=== PATIENT | male | born 1930 | race Caucasian/White ===

== ENCOUNTER 2016-11-10 07:49 | Outpatient (CLI) | payer MEDICARE | END 2016-11-10 07:50 | disposition home or self-care (01) | DX: M70.21 Olecranon bursitis, right elbow (principal) ==

== ENCOUNTER 2016-11-14 11:48 | Inpatient (IN) | payer MEDICARE ==
[2016-11-14] MEDS ORDERED: AMPICILLIN/SULBACTAM 3 GM in SODIUM CHLORIDE 0.9% MINIBAG 100 ML IV STA (12:56)
[2016-11-14] MEDS ORDERED: HYDROcod/ACETAM 5/325 MG TABLET PO PRN (15:10)
[2016-11-14] MEDS ORDERED: ACETAMINOPHEN 325 MG TABLET PO PRN (15:10)
[2016-11-14] MEDS ORDERED: SODIUM CHLORIDE FLUSH 0.9% 10 ML SYRINGE IVP PRN (15:10)
[2016-11-14] MEDS ORDERED: ONDANSETRON ODT 4 MG TABLET TL PRN (15:10)
[2016-11-14] MEDS ORDERED: PIPERACILLIN/TAZOBACTAM 3.375 GM in SODIUM CHLORIDE 0.9% MINIBAG 100 ML IV SCH (16:00)
[2016-11-14] MEDS: PANTOPRAZOLE 40 MG TABLET PO SCH (16:35)
[2016-11-14] MEDS ORDERED: WATER FOR INJECTION,STERILE 10 ML ONE (17:40)
[2016-11-14] MEDS ORDERED: AMPICILLIN/SULBACTAM 1.5 GM in SODIUM CHLORIDE 0.9% MINIBAG 100 ML IV SCH (18:00)
[2016-11-14] MEDS ORDERED: OLANZapine 10 MG VIAL IM ONE (18:00)
[2016-11-14] MEDS ORDERED: BUDESONIDE 0.5 MG/2 ML NEB INH SCH (19:00)
[2016-11-14] MEDS: LORazepam 0.5 MG TABLET PO PRN (19:01)
[2016-11-14] MEDS ORDERED: SODIUM CHLORIDE 0.9% 250 ML IV ONE (19:04)
[2016-11-14] MEDS: AMPICILLIN/SULBACTAM 3 GM in SODIUM CHLORIDE 0.9% MINIBAG 100 ML IV SCH (19:15)
[2016-11-14] MEDS: SODIUM CHLORIDE FLUSH 0.9% 10 ML SYRINGE IVP SCH (19:15)
[2016-11-14] MEDS: ATORVASTATIN 10 MG TABLET PO SCH (21:59)
[2016-11-14] MEDS: FORMOTEROL FUMARATE NEB 20 MCG/2 ML INH SCH (23:09)
[2016-11-15] MEDS: AMPICILLIN/SULBACTAM 3 GM in SODIUM CHLORIDE 0.9% MINIBAG 100 ML IV SCH ×4 (02:14→22:31)
[2016-11-15] MEDS: SODIUM CHLORIDE FLUSH 0.9% 10 ML SYRINGE IVP SCH ×3 (02:16→20:21)
[2016-11-15] MEDS: PANTOPRAZOLE 40 MG TABLET PO SCH (06:40)
[2016-11-15] MEDS ORDERED: SODIUM CHLORIDE 0.45% 1,000 ML IV SCH ×2 (08:00)
[2016-11-15] MEDS: FORMOTEROL FUMARATE NEB 20 MCG/2 ML INH SCH ×2 (08:00→20:41)
[2016-11-15] MEDS: MULTIVITAMIN TABLET PO SCH (09:14)
[2016-11-15] MEDS: CITALOPRAM 10 MG TABLET PO SCH (09:14)
[2016-11-15] MEDS: LORATADINE 10 MG TABLET PO SCH (09:14)
[2016-11-15] MEDS: OMEGA-3 ACID ETHYL ESTERS 1 GM CAPSULE PO SCH (09:15)
[2016-11-15] MEDS: POLYETHYLENE GLYCOL 3350 17 GM PACKET PO SCH (09:15)
[2016-11-15] MEDS ORDERED: DEXTROSE 5%-0.45% NACL 1,000 ML IV ONE (10:08)
[2016-11-15] MEDS ORDERED: LACTATED RINGERS 1,000 ML IV ONE ×3 (17:09→18:39)
[2016-11-15] MEDS ORDERED: DEXAMETHASONE 4 MG/ML VIAL IVP ONE (17:10)
[2016-11-15] MEDS ORDERED: LIDOCAINE-MPF 2% 5 ML VIAL IM ONE (17:10)
[2016-11-15] MEDS ORDERED: MIDAZOLAM 2 MG/2 ML VIAL IVP ONE (17:10)
[2016-11-15] MEDS ORDERED: fentaNYL 100 MCG/2 ML VIAL IVP ONE (17:10)
[2016-11-15] MEDS ORDERED: PROPOFOL 200 MG/20 ML VIAL IVP ONE (17:10)
[2016-11-15] MEDS ORDERED: GLYCOPYRROLATE 1 MG/5 ML VIAL IVP ONE (17:10)
[2016-11-15] MEDS ORDERED: ceFAZolin 1 GM VIAL IV ONE (17:10)
[2016-11-15] MEDS ORDERED: OLANZapine 10 MG VIAL IM PRN (18:14)
[2016-11-15] MEDS ORDERED: fentaNYL 100 MCG/2 ML VIAL ONE (18:15)
[2016-11-15] MEDS: LORazepam 0.5 MG TABLET PO PRN (20:18)
[2016-11-15] MEDS: ATORVASTATIN 10 MG TABLET PO SCH (20:18)
[2016-11-15] MEDS: DULERA INH PRN (20:30)
[2016-11-15] MEDS: BUDESONIDE 0.5 MG/2 ML NEB INH SCH (20:42)
[2016-11-15] MEDS ORDERED: DULERA INH PRN (20:59)
[2016-11-16] MEDS: AMPICILLIN/SULBACTAM 3 GM in SODIUM CHLORIDE 0.9% MINIBAG 100 ML IV SCH ×2 (04:35→09:14)
[2016-11-16] MEDS: SODIUM CHLORIDE FLUSH 0.9% 10 ML SYRINGE IVP SCH (06:05)
[2016-11-16] MEDS: PANTOPRAZOLE 40 MG TABLET PO SCH (06:06)
[2016-11-16] MEDS: DULERA INH PRN (07:40)
[2016-11-16] MEDS: FORMOTEROL FUMARATE NEB 20 MCG/2 ML INH SCH (07:40)
[2016-11-16] MEDS: BUDESONIDE 0.5 MG/2 ML NEB INH SCH (07:41)
[2016-11-16] MEDS ORDERED: DEXTROSE 5%-0.45% NACL 1,000 ML IV SCH (08:00)
[2016-11-16] MEDS: POLYETHYLENE GLYCOL 3350 17 GM PACKET PO SCH (09:14)
[2016-11-16] MEDS: OMEGA-3 ACID ETHYL ESTERS 1 GM CAPSULE PO SCH (09:14)
[2016-11-16] MEDS: CITALOPRAM 10 MG TABLET PO SCH (09:14)
[2016-11-16] MEDS: MULTIVITAMIN TABLET PO SCH (09:14)
[2016-11-16] MEDS: LORATADINE 10 MG TABLET PO SCH (09:14)
== END 2016-11-16 11:50 | disposition home or self-care (01) | DRG 502 ==
PROC: 0MT30ZZ Resection of Right Elbow Bursa and Ligament, Open Approach (ICD-10-PCS; principal; 2016-11-15 16:00)
DX: M71.121 Other infective bursitis, right elbow (principal); B95.61 Methicillin susceptible Staphylococcus aureus infection as the cause of diseases classified elsewhere; M25.721 Osteophyte, right elbow; E78.00 Pure hypercholesterolemia, unspecified; J45.909 Unspecified asthma, uncomplicated; G30.9 Alzheimer's disease, unspecified; F02.80 Dementia in other diseases classified elsewhere, unspecified severity, without behavioral disturbance, psychotic disturbance, mood disturbance, and anxiety; E78.5 Hyperlipidemia, unspecified; J43.9 Emphysema, unspecified; Z87.891 Personal history of nicotine dependence; Z66 Do not resuscitate; Z91.81 History of falling

== ENCOUNTER 2017-02-11 17:26 | Emergency (ER) | payer MEDICARE | END 2017-02-11 18:34 | disposition home or self-care (01) | DX: S01.112A Laceration without foreign body of left eyelid and periocular area, initial encounter (principal); S09.90XA Unspecified injury of head, initial encounter; S00.81XA Abrasion of other part of head, initial encounter; S00.01XA Abrasion of scalp, initial encounter; S00.83XA Contusion of other part of head, initial encounter; W01.0XXA Fall on same level from slipping, tripping and stumbling without subsequent striking against object, initial encounter; Y93.K1 Activity, walking an animal; Y92.410 Unspecified street and highway as the place of occurrence of the external cause; R03.0 Elevated blood-pressure reading, without diagnosis of hypertension; G30.9 Alzheimer's disease, unspecified; F02.80 Dementia in other diseases classified elsewhere, unspecified severity, without behavioral disturbance, psychotic disturbance, mood disturbance, and anxiety ==

== ENCOUNTER 2017-12-04 13:55 | Outpatient (CLI) | payer MEDICARE ==
--- NOTE | 2017-12-04 18:05 | XRAY Report ---
DATE OF SERVICE: 12/04/2017 LEFT HIP AND PELVIS: 12/04/2017 CLINICAL INDICATION: Left hip pain. FINDINGS: Frontal view of the hips and pelvis and frogleg lateral view of the left hip demonstrate moderate to severe osteoarthritis. There is no evidence of acute fracture or dislocation. Vascular calcifications are incidentally noted. IMPRESSION: MODERATE TO SEVERE OSTEOARTHRITIS. TD: 12/04/2017 18:04
== END 2017-12-04 13:56 | disposition home or self-care (01) ==
LOC: DI 13:55
PROVIDERS: ATTEND Internal Medicine
DX: M16.12 Unilateral primary osteoarthritis, left hip (principal)

== ENCOUNTER 2018-07-18 10:10 | Outpatient (CLI) | payer MEDICARE ==
[2018-07-18 14:10] LABS: ALBUMIN 3.8 g/dL (3.2-5.5); ALBUMIN/GLOBULIN RATIO 1.2 (1.0-2.2); ALKALINE PHOSPHATASE 80 IU/L (42-121); ALT ALANINE AMINOTRANSFERASE 25 IU/L (10-60); AST ASPARTATE AMINOTRANSFERASE 35 IU/L (10-42); BILIRUBIN,TOTAL 0.9 mg/dL (0.2-1.0); BUN - BLOOD UREA NITROGEN 17 mg/dL (6-20); CALCIUM 9.2 mg/dL (8.5-10.3); CARBON DIOXIDE - CO2 28 mmol/L (21-32); CHLORIDE 104 mmol/L (101-111); CHOL/HDL RATIO 3.3 (<5.0); CHOLESTEROL 179 mg/dL; CREATININE 1.3 mg/dL (0.6-1.2); GFR - MDRD 52 (>89); GLUCOSE 97 mg/dL (70-100); HDL CHOLESTEROL 55 mg/dL; LDL CHOLESTEROL,CALCULATED 106 mg/dL; LDL/HDL RATIO 1.9 (<3.6); SODIUM 139 mmol/L (135-145); TOTAL PROTEIN 7.1 g/dL (6.7-8.2); VLDL CHOLESTEROL 18 mg/dL
== END 2018-07-18 10:11 | disposition home or self-care (01) ==
LOC: LAB.R 10:10
PROVIDERS: ATTEND Internal Medicine
DX: E78.5 Hyperlipidemia, unspecified (principal)
CPT/HCPCS: 80053; 80061; 83721

== ENCOUNTER 2019-07-07 08:34 | Outpatient (CLI) | payer MEDICARE ==
[2019-07-07 08:48] LABS: BASOPHILS % (AUTO) 0.4 %; EOSINOPHILS # (AUTO) 0.4 10^3/uL (0.0-0.7); EOSINOPHILS % (AUTO) 5.3 %; HGB - HEMOGLOBIN 15.1 g/dL (14.0-18.0); LYMPHOCYTES # (AUTO) 2.9 10^3/uL (1.5-3.5); LYMPHOCYTES % (AUTO) 41.5 %; MEAN CORPUSCULAR HEMOGLOBIN 29.7 pg (27.0-31.0); MEAN CORPUSCULAR HGB CONC 32.3 g/dL (32.0-36.0); MEAN CORPUSCULAR VOLUME 91.9 fL (80.0-94.0); MEAN PLATELET VOLUME 8.9 fL (7.4-11.4); MONOCYTES # (AUTO) 0.5 10^3/uL (0.0-1.0); MONOCYTES % (AUTO) 7.4 %; NEUTROPHILS # (AUTO) 3.2 10^3/uL (1.5-6.6); NEUTROPHILS % (AUTO) 45.1 %; PLT - PLATELET COUNT 246 10^3/uL (130-450); RED BLOOD COUNT 5.08 10^6/uL (4.70-6.10); RED CELL DISTRIBUTION WIDTH 13.6 % (12.0-15.0)
[2019-07-07 09:03] LABS: ALBUMIN 3.7 g/dL (3.2-5.5); ALKALINE PHOSPHATASE 66 IU/L (42-121); ALT ALANINE AMINOTRANSFERASE 20 IU/L (10-60); AST ASPARTATE AMINOTRANSFERASE 30 IU/L (10-42); BILIRUBIN,TOTAL 0.6 mg/dL (0.2-1.0); BUN - BLOOD UREA NITROGEN 16 mg/dL (6-20); CALCIUM 9.4 mg/dL (8.5-10.3); CARBON DIOXIDE - CO2 29 mmol/L (21-32); CHLORIDE 103 mmol/L (101-111); CHOL/HDL RATIO 3.4 (<5.0); CHOLESTEROL 183 mg/dL; CREATININE 1.4 mg/dL (0.6-1.2); GFR - MDRD 48 (>89); GLUCOSE 96 mg/dL (70-100); HDL CHOLESTEROL 54 mg/dL; LDL CHOLESTEROL,CALCULATED 116 mg/dL; LDL/HDL RATIO 2.1 (<3.6); SODIUM 142 mmol/L (135-145); TOTAL PROTEIN 7.5 g/dL (6.7-8.2); VLDL CHOLESTEROL 13 mg/dL
== END 2019-07-07 08:35 | disposition home or self-care (01) ==
LOC: LAB 08:34
PROVIDERS: ATTEND Nurse Practitioner
DX: F03.90 Unspecified dementia, unspecified severity, without behavioral disturbance, psychotic disturbance, mood disturbance, and anxiety (principal); E78.5 Hyperlipidemia, unspecified; K92.1 Melena
CPT/HCPCS: 36415; 80053; 80061; 83721; 85025

== ENCOUNTER 2019-08-05 08:00 | Outpatient (CLI) | payer MEDICARE | END 2019-08-05 23:59 | disposition home or self-care (01) | LOC: LAB.R 08:00 | PROVIDERS: ATTEND Nurse Practitioner | DX: K92.1 Melena (principal) | CPT/HCPCS: 82274 ==

== ENCOUNTER 2020-09-27 17:39 | Emergency (ER) | payer MEDICARE ==
--- NOTE | 2020-09-27 18:35 | ED Physician Documentation ---
History of Present Illness - Stated complaint Stated Complaint: GLF - Chief complaint Chief Complaint: Trauma Ext - History obtained from History obtained from: Patient - History of Present Illness Timing: Today Pain level max: 5 Pain level now: 1 - Additonal information Additional information: Patient is an 89-year-old male with severe dementia. He is here with his . She states that he was on concrete steps today when he slipped and fell backwards and slid down 3-4 concrete steps. He complained of abdominal pain since the event. She does not think that he hit his head, but she is unsure. Patient was carrying a bag of dog food. No vomiting. No loss of consciousness. No numbness or tingling. Does have abrasions and skin tears to the right hand. Tetanus is up-to-date Review of Systems Unable to obtain: Dementia Constitutional: denies: Fever, Chills Respiratory: denies: Cough GI: denies: Vomiting, Diarrhea : denies: Dysuria Skin: denies: Rash Neurologic: denies: Seizure PD PAST MEDICAL HISTORY - Past Medical History Past Medical History: Yes Cardiovascular: High cholesterol Respiratory: Asthma Neuro: Dementia Endocrine/Autoimmune: None GI: None : None HEENT: Chronic hearing loss Psych: Other Musculoskeletal: None Derm: None - Past Surgical History Past Surgical History: No - Present Medications Home Medications: Ambulatory Orders Medication Instructions Recorded Confirmed Citalopram [CeleXA] 10 mg PO DAILY 11/14/16 02/11/17 Loratadine [Claritin] 10 mg PO DAILY 11/14/16 02/11/17 Mometasone/Formoterol [Dulera 200 1 puffs INH BID 11/14/16 02/11/17 Mcg-5 Mcg Inhaler] Multivitamin [Theragran] 1 tab PO DAILY 11/14/16 02/11/17 [place]-3/Dha/Epa/Fish Oil [Fish Oil 1,000 mg PO DAILY 11/14/16 02/11/17 1,000 mg Softgel] Simvastatin 40 mg PO QPM 11/14/16 02/11/17 Bacillus Coagulans [Probiotic] 1 each PO DAILY 30 Days capsule. 11/16/16 02/11/17 Pantoprazole [Protonix] 40 mg PO QDAC tablet 11/16/16 02/11/17 - Allergies Allergies/Adverse Reactions: Allergies Allergy/AdvReac Type Severity Reaction Status Date / Time bacitracin Allergy Unknown Verified 09/27/20 18:01 [From Neosporin ([id number])] bacitracin zinc * Allergy Unknown Verified 09/27/20 18:01 [From Neosporin ([id number])] neomycin sulfate * Allergy Unknown Verified 09/27/20 18:01 [From Neosporin ([id number])] polymyxin B Allergy Unknown Verified 09/27/20 18:01 [From Neosporin ([id number])] - Social History Does the pt smoke?: No Smoking Status: Never smoker Does the pt drink ETOH?: No Does the pt have substance abuse?: No - Immunizations Immunizations are current?: Yes - POLST Patient has POLST: No POLST Status: Limited Interventions PD ED PE NORMAL - Vitals Vital signs reviewed: Yes - General General: No acute distress, Well developed/nourished, Other (alert, oriented to person only) - HEENT HEENT: Atraumatic, PERRL, Moist mucous membranes, Pharynx benign - Neck Neck: Supple, no meningeal sign, No bony TTP - Cardiac Cardiac: RRR, Strong equal pulses - Respiratory Respiratory: No respiratory distress, Clear bilaterally - Abdomen Abdomen: Soft, Non tender, Non distended - Back Back: No spinal TTP (no step off or deformity) - Derm Derm: Warm and dry - Extremities Extremities: No deformity, No tenderness to palpate, Normal ROM s pain, No edema, Other (skin tear to dorsum of R hand and R 5th digit, pad of finger. NVI. ) - Neuro Neuro: No motor deficit, No sensory deficit, Other (alert, pleasantly confused) Results - Vitals Vitals: Vital Signs - 24 hr 09/27/20 09/27/20 09/27/20 17:54 18:26 19:30 Temperature 36.0 C L 37.1 C Heart Rate 62 65 69 Respiratory 14 18 16 Rate Blood Pressure 110/62 164/88 H 165/79 H O2 Saturation 98 98 99 09/27/20 20:35 Temperature 36.7 C Heart Rate 64 Respiratory 18 Rate Blood Pressure 146/71 H O2 Saturation 97 Oxygen O2 Source Room air - Labs Labs: Laboratory Tests 09/27/20 09/27/20 18:35 18:35 WBC 8.3 RBC 4.81 Hgb 14.8 Hct 43.1 MCV 89.6 MCH 30.8 MCHC 34.3 RDW 13.1 Plt Count 251 MPV 9.4 Neut # (Auto) 5.2 Lymph # (Auto) 2.1 [place] # (Auto) 0.7 Eos # (Auto) 0.2 Baso # (Auto) 0.1 Absolute Nucleated RBC 0.00 Nucleated RBC % 0.0 Sodium 136 Potassium 4.0 Chloride 103 Carbon Dioxide 23 Anion Gap 10.0 BUN 22 H Creatinine 1.4 H Estimated GFR (MDRD) 48 L Glucose 101 H Calcium 9.5 Total Bilirubin 1.1 H AST 37 ALT 23 Alkaline Phosphatase 77 Total Protein 7.4 Albumin 4.1 Globulin 3.3 Albumin/Globulin Ratio 1.2 Lipase 34 - Rads (name of study) head Ct Radiology: Prelim report reviewed, EMP read contemporaneously c-spine CT Radiology: Prelim report reviewed, EMP read contemporaneously chest CT Radiology: Prelim report reviewed, EMP read contemporaneously abd/pelvis CT Radiology: Prelim report reviewed, EMP read contemporaneously PD MEDICAL DECISION MAKING - ED course Complexity details: reviewed results, re-evaluated patient, considered differential, d/w patient, d/w family ED course: Wounds were cleansed and bandaged. No acute findings on CT scans. Likely old L1 compression fracture. He has no pain at the site. No tenderness on palpation or percussion. Ambulating well. Appears to be at his normal baseline. would like to take him home at this time. Patient and family counseled regarding signs and symptoms for which I believe and urgent re- evaluation would be necessary. Patient with good understanding of and agreement to plan and is comfortable going home at this time This document was made in part using voice recognition software. While efforts are made to proofread this document, sound alike and grammatical errors may occur. Departure - Departure Disposition: 01 Home, Self Care Clinical Impression: Skin tear Fall Qualifiers: Encounter type: initial encounter Qualified Code(s): W19.XXXA - Unspecified fall, initial encounter Condition: Good Instructions: ED Mechanical Fall, ED Avulsion Dermal Follow-Up: Nicolle Ardon ARNP, [facility] [Primary Care Provider] - Within 1 week Comments: Thankfully his CT scans do not show any acute abnormalities tonight. Keep the wound clean. Follow-up with his doctor later this week for a wound check. Change the dressings daily. Leave the Mepitel in place on the hand for 1 week.
[2020-09-27 18:51] LABS: BASOPHILS # (AUTO) 0.1 10^3/uL (0.0-0.1); BASOPHILS % (AUTO) 0.7 %; EOSINOPHILS # (AUTO) 0.2 10^3/uL (0.0-0.7); EOSINOPHILS % (AUTO) 2.3 %; HGB - HEMOGLOBIN 14.8 g/dL (14.0-18.0); LYMPHOCYTES # (AUTO) 2.1 10^3/uL (1.5-3.5); LYMPHOCYTES % (AUTO) 25.6 %; MEAN CORPUSCULAR HEMOGLOBIN 30.8 pg (27.0-31.0); MEAN CORPUSCULAR HGB CONC 34.3 g/dL (32.0-36.0); MEAN CORPUSCULAR VOLUME 89.6 fL (80.0-94.0); MEAN PLATELET VOLUME 9.4 fL (7.4-11.4); MONOCYTES # (AUTO) 0.7 10^3/uL (0.0-1.0); MONOCYTES % (AUTO) 8.6 %; NEUTROPHILS # (AUTO) 5.2 10^3/uL (1.5-6.6); NEUTROPHILS % (AUTO) 62.2 %; PLT - PLATELET COUNT 251 10^3/uL (130-450); RED BLOOD COUNT 4.81 10^6/uL (4.70-6.10); RED CELL DISTRIBUTION WIDTH 13.1 % (12.0-15.0); WHITE BLOOD COUNT 8.3 x10^3/uL (4.8-10.8)
[2020-09-27 19:00] LABS: ALBUMIN 4.1 g/dL (3.2-5.5); ALBUMIN/GLOBULIN RATIO 1.2 (1.0-2.2); BILIRUBIN,TOTAL 1.1 mg/dL (0.2-1.0); CALCIUM 9.5 mg/dL (8.5-10.3); CREATININE 1.4 mg/dL (0.6-1.2); TOTAL PROTEIN 7.4 g/dL (6.7-8.2)
[2020-09-27] MEDS ORDERED: IOVERSOL 320 100 ML VIAL IVP ONE ×2 (19:07→19:41)
--- NOTE | 2020-09-27 20:12 | CT Report ---
PROCEDURE: HEAD WO INDICATIONS: fall, dementia TECHNIQUE: Noncontrast 4.5 mm thick angled axial sections acquired from the foramen magnum to the vertex. For r adiation dose reduction, the following was used: automated exposure control, adjustment of mA and/or kV according to patient size. COMPARISON: None. FINDINGS: Image quality: Excellent. CSF spaces: Basal cisterns are patent. No extra-axial fluid collections. Ventricles are normal in size and shape. Brain: No midline shift. No intracranial masses or hemorrhage. Walsh-white matter interface is norm al. Diffuse, scattered nonspecific white matter signal changes, statistically represent chronic micro vascular ischemic disease although differential includes neurodegenerative, infectious/inflammatory, demyelinating etiologies among other possibilities. Skull and face: Calvarium and visualized facial bones are intact, without suspicious lesions. Sinuses: Visualized sinuses and mastoids are clear. IMPRESSION: No acute intracranial process. Reviewed by: Sabino Vega MD on 09/27/2020 8:10 PM PST Approved by: Sabino eVga MD on 09/27/2020 8:10 PM PST Station ID: [id number]
--- NOTE | 2020-09-27 20:15 | CT Report ---
PROCEDURE: CERVICAL SPINE WO INDICATIONS: fall, dementia TECHNIQUE: Noncontrast 3 mm thick sections acquired from the skull base to the T4 level. Sagittal and coronal r eformats were then constructed. For radiation dose reduction, the following was used: automated exp osure control, adjustment of mA and/or kV according to patient size. COMPARISON: None. FINDINGS: Image quality: Excellent. Bones: No fractures or dislocations. Scattered multilevel endplate spurring and diffuse facet arthro suyapa. Straightening of the normal lordotic curvature. Severe diffuse narrowing of the cervical disc spaces . Visualized superior ribs are intact. Soft tissues: Prevertebral soft tissues are normal in thickness. No paravertebral hematomas. No ap ical pneumothoraces. Scattered carotid atherosclerotic calcified plaque. IMPRESSION: No fracture. Severe diffuse cervical spondylosis and facet arthropathy. Straightening of the normal lordotic curvature. Reviewed by: Sabino Haywood MD on 09/27/2020 8:14 PM PST Approved by: Sabino Haywood MD on 09/27/2020 8:14 PM PST Station ID: [id number]
--- NOTE | 2020-09-27 20:20 | CT Report ---
PROCEDURE: CHEST W INDICATIONS: fall, chest pain CONTRAST: IV CONTRAST: Optiray 320 ml: 100 PO CONTRAST: *NO PO CONTRAST TECHNIQUE: After the administration of intravenous contrast, 5 mm thick sections acquired from the pulmonary api clark to the posterior costophrenic angles. 7 mm thick coronal MIP reformats were acquired. For radia tion dose reduction, the following was used: automated exposure control, adjustment of mA and/or kV according to patient size. COMPARISON: None. FINDINGS: Image quality: Excellent. Lungs and pleura: Scattered subsegmental scarring/atelectasis. No acute consolidation. No pleural effusions or pneumothorax. Central and peripheral airways are patent and normal in caliber. Mediastinum: Heart size is normal. Coronary artery calcifications are noted. No pericardial effusi on. No mediastinal or hilar adenopathy by size criteria. Thoracic aorta and central pulmonary arter ies are normal in size. Esophagus is normal in caliber. No hiatal hernia. Bones and chest wall: There is mild central height loss of the L1 vertebral body however this findin g technically age indeterminate. Simple appearing left renal cyst. IMPRESSION: Scattered subsegmental scarring/atelectasis. No acute consolidation. Mild L1 vertebral body height loss, although this finding technically age indeterminate. Recommend cl inical correlation. No acute consolidation Coronary artery disease Reviewed by: Sabino Vega MD on 09/27/2020 8:19 PM PST Approved by: Sabino Vega MD on 09/27/2020 8:19 PM PST Station ID: [id number]
--- NOTE | 2020-09-27 20:35 | CT Report ---
PROCEDURE: Abdomen/Pelvis W INDICATIONS: fall, abd pain CONTRAST: IV CONTRAST: Optiray 320 ml: 100 PO CONTRAST: *NO PO CONTRAST TECHNIQUE: After the administration of intravenous contrast, 5 mm thick sections acquired from the diaphragms to the symphysis. 5 mm thick coronal and sagittal reformats were acquired. For radiation dose reducti on, the following was used: automated exposure control, adjustment of mA and/or kV according to chelle ent size. COMPARISON: None. FINDINGS: Image quality: Excellent. ABDOMEN: Lung bases: Lung bases are clear. Heart size is normal. Solid organs: Liver and spleen are normal in size and enhancement. Gallbladder unremarkable Biliar y system is non dilated. Pancreas enhances normally. No adrenal nodules. No hydronephrosis. Multipl e left renal cysts. Peritoneum and bowel: Bowel loops demonstrate normal wall thickness and caliber. No free fluid or air. Colonic diverticulosis incidentally noted without evidence of acute inflammat ion. Nodes and vessels: No retroperitoneal or mesenteric adenopathy by size criteria. Aorta and inferior vena cava are normal in size. Scattered vascular calcifications are present in the aorta. Miscellaneous: No ventral hernias. PELVIS: Genitourinary: Bladder wall thickness is normal. Small fat-containing left inguinal hernia. Bones: No suspicious bony lesions. Mild central height loss of the L1 vertebral body, technically a ge indeterminate. IMPRESSION: Mild central height loss involving the L1 vertebral body although this finding technically age indete rminate. Please correlate with point tenderness. Elsewhere, no acute abnormality. Colonic diverticulosis Left renal cyst. Additional chronic and incidental findings as above. Reviewed by: Sabino Vega MD on 09/27/2020 8:33 PM PST Approved by: Sabino Vega MD on 09/27/2020 8:33 PM PST Station ID: [id number]
[2020-09-27 20:36] VITALS: BP 146/71
== END 2020-09-27 20:55 | disposition home or self-care (01) ==
LOC: ED 17:39
DX: S61.216A Laceration without foreign body of right little finger without damage to nail, initial encounter (principal); W10.9XXA Fall (on) (from) unspecified stairs and steps, initial encounter; Y93.89 Activity, other specified; F03.90 Unspecified dementia, unspecified severity, without behavioral disturbance, psychotic disturbance, mood disturbance, and anxiety; I25.10 Atherosclerotic heart disease of native coronary artery without angina pectoris
CPT/HCPCS: 36415; 70450; 71260; 72125; 74177; 80053; 83690; 85025; 99282; 99284; Q9967

== ENCOUNTER 2020-10-12 12:40 | Outpatient (CLI) | payer MEDICARE ==
--- NOTE | 2020-10-12 16:20 | CONSULTATION NOTE ---
Palliative Care Consultation - Referral Referring Provider: CHARLOTTE Luong Time of Visit: 6791-0095 Referral setting: Home Referral Reason: Dementia/Debility/Advanced Care Planning - Information Sources Records reviewed: Previous records reviewed History/Review of Systems obtained from: Patient, Family (/RADU, Arline) Exam limitations: Clinical condition (Advanced Dementia) - History of Present Illness Brief History of Present Illness: This is an 89-year-old gentleman who was seen and evaluated today within his home for initial palliative care consultation due to advancing dementia, debility, and advanced care planning with his , Priscilla antonio. It has been a number of years since the patient began his cognitive decline. The patient's mother carried a diagnosis of Alzheimer's dementia and was otherwise physically healthy and he saw Dr. Cortez. It was difficult for him initially to accept this diagnosis and his intervened offering support and he remains within their home with her providing primary caregiving. The patient and 's daughter, Paulette who was a former DIVISION OFFICER [employer] also offers support and is the 's "rock." The patient's has a history of verbal outbursts if his boundaries are not known or respected. The patient's reports that she has never felt unsafe. They do have a gun within the home that is in a secure location. The patient did spend several months several years ago [facility] while the was recovering from her own medical problems and overall did well there. The patient's finds that she is unable to have the patient be despite encouragement from herself or from her daughter. He continues to have repetitive behaviors where he perceives in the late evening that he is having to return home from work and will want to go outside but always comes back in. This is not occurred for some time but was a persistent behavior in the past. There are times when he is not able to recognize his or children. The patient's reports that he had a recent fall and has some concerns regarding safety within the home environment as the patient is at high risk for falling. The patient is seen sitting at the kitchen table, frail and well groomed. Noticeable that he is hard of hearing and opts not to wear his hearing aids. He occasionally interjects when questioned. No evidence of acute distress. 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 Former alcohol abuse with making his own "special martini" stopped 2013 drinking.) Social History - Living Situation Living arrangement: At home Living Situation: With spouse/s.o., With family (daughter, Paulette and son) Support System: Patient is and has 4 children. His daughter, Nikki is a former CERTIFIED REGISTERED LOCKSMITH who lives with her parents to provide assistance as well as one of their son. Patient worked for the [employer]. He has a history of tobacco and alcohol abuse. They have 2 pets in the home a cat and a dog, Moccha. Family History - Family History Family History: Mother: , Alzheimer's Disease, Father: Medications/Allergies - Medications Home Medications: Ambulatory Orders Medication Instructions Recorded Confirmed Citalopram [CeleXA] 10 mg PO DAILY 11/14/16 10/12/20 Loratadine [Claritin] 10 mg PO DAILY 11/14/16 10/12/20 Multivitamin [Theragran] 1 tab PO DAILY 11/14/16 10/12/20 Simvastatin 40 mg PO QPM 11/14/16 10/12/20 Bacillus Coagulans [Probiotic] 1 each PO DAILY 30 Days capsule. 11/16/16 10/12/20 Cholecalciferol (Vitamin D3) 1 cap PO DAILY 10/12/20 10/12/20 [Vitamin D3] Fluticasone/Salmeterol [Advair 1 puffs IN BID 10/12/20 10/12/20 500-50 Diskus] LORazepam [Ativan] 1 tab PO DAILY PRN 10/12/20 10/12/20 - Allergies Allergies/Adverse Reactions: Allergies Allergy/AdvReac Type Severity Reaction Status Date / Time bacitracin Allergy Unknown Verified 10/12/20 16:25 [From Neosporin ([id number])] bacitracin zinc * Allergy Unknown Verified 10/12/20 16:25 [From Neosporin ([id number])] neomycin sulfate * Allergy Unknown Verified 10/12/20 16:25 [From Neosporin ([id number])] polymyxin B Allergy Unknown Verified 10/12/20 16:25 [From Neosporin ([id number])] Review of Systems - Constitutional Constitutional: reports: Fatigue. denies: Weight stable - Eyes Eyes: denies: Corrective lenses - Ears, Nose & Throat Ears, Nose & Throat: reports: Hearing loss. denies: Hearing aids, Dry mouth - Cardiovascular Cardiovascular: denies: Chest pain, Edema - Respiratory Respiratory: denies: Cough - Gastrointestinal Gastrointestinal: reports: Good appetite. denies: Constipation, Diarrhea - Genitourinary Genitourinary: reports: Incontinence. denies: Dysuria - Musculoskeletal Musculoskeletal: reports: Stiffness, Joint pain (hands and to knee due to OA), Other (history of falls) - Integumentary Integumentary: denies: Rash - Neurological Neurological: reports: General weakness, Memory problems. denies: Headache, Dizziness - Psychiatric Psychiatric: reports: Aggitation (history of agitation and with use of PRN lorazepam this caused the patient to "be wired" per the and it has not been needed for several months.) - Endocrine Endocrine: reports: Other (extremities always feel cold) - All Other Systems All Other Systems: reports: Reviewed and negative (Patient is a poor historian due to dementia and review of systems is supplemented by the patient's , Priscilla.) Physical Exam - Vital Signs Temperature: 36.4 C Pulse Rate: 81 O2 Saturation: 96 (on RA at rest) Blood Pressure: 107/65 (left wrist cuff sitting) - Physical Exam General Appearance: positive: No acute distress, Alert, Other (thin, well groomed) Eyes Bilateral: positive: Normal inspection, PERRL ENT: positive: No signs of dehydration Neck: positive: Trachea midline Cardiovascular: positive: Regular rate & rhythm, No murmur Respiratory: positive: No respiratory distress, Breath sounds nml. negative: Rales Abdomen: positive: Non-tender, Soft, Nml bowel sounds Skin: positive: Dryness, Other (scab to dorsal aspect of left hand without s/s of infection) Extremities: positive: No pedal edema. negative: Joint swelling Neurologic/Psychiatric: positive: Disoriented to place, Disoriented to time, Other (Pleseantly confused) Palliative Care - POLST Patient has POLST: Yes POLST Status: DNR Pain: Comment (due to OA) Tiredness/Fatigue: Mild (1-3) Drowsiness/Sedation: None Nausea: None Anorexia: None Dyspnea: None Depression: None Anxiety: Mild (1-3) Feelings of wellbeing/Perceived Quality of Life: Acceptable Sleep: Sleeps well Constipation: No Performance Status: Patient has a history of falls. He requires assistance with activities of daily living. He is unable to meal prep and requires cueing with dressing as he will often wear his 's clothes. Incontinent of bladder and remains continent of bowel. No weight loss reported. F AST 6D - Palliative Care Discussion: The patient has experienced a functional decline over several years and requires oversight by his who is his primary caregiver within the home. The does have some support from her daughter, Nikki was a formal DIVISION [employer] and where the is unable to succeed in convincing the patient regarding care the daughter often will be able to succeed. The patient's is concerned that he will not allow either her nor their daughter to assist with bathing. There are no a daptive devices within the home for fall prevention and he would benefit from a home safety evaluation as well as home health physical therapy and occupational therapy services for safety and balance and strengthening due to underlying osteoarthritis to multiple joints. The patient's has several health problems and would benefit from additional teasing out regarding goals of care moving forward in addition of advanced care planning. DAYA introduced today and reports that DN AR is present within the home but she does not have it readily available at this time. Open to exploring goals of care at next visit. Patient does have a history of verbal outbursts and agitation/anxiety due to his underlying dementia. HePatient does have a history of verbal outbursts and agitation/anxiety due to his underlying dementia. He Had undesirable response to lorazepam where he became more heightened and alert and would benefit from a trial of a low-dose antipsychotic such as quetiapine if needed in the future on an as-needed basis. Impression and Recommendations - Palliative Care Impression: This is a rip 89-year-old gentleman who has had a slow cognitive decline over several years due to advancing dementia at FAST 6D , Osteoarthritis with debility, high risk for fall, in advancing caregiver burden. Patient would benefit from home health services for PT and OT for balance and strengthening as well as home safety evaluation for fall prevention and is open to this. He has a history of agitation and verbal outbursts but none recently and the patient's reports that she feels safe within the home environment. Palliative care to continue to provide support for symptom management, care coordination, teasing out goals of care and advance care planning. Recommendations/Counseling Done: 1. Osteoarthritis, multiple joints. Patient at high risk for falls with emergency department visit end of August 2020 due to fall. He would benefit from home safety evaluation for fall prevention and physical therapy and Occupational Therapy for strengthening, gait training, and balance. 2.Hyperlipidemia. Presently on simvastatin 40 mg nightly. As this is primary prevention and patient does not have a history of hypertension or past history of CVA or NV May consider discontinuation of simvastatin therapy in the future given time to benefit and potential side effects. Plan to discuss in the future with the patient's . 3. History of agitation. Patient has a history of verbal outbursts due to his underlying depression. He had a paradoxical response to lorazepam when previously administered and presently his symptoms are overall controlled with citalopram 10 mg daily which should be continued. 4.Dementia with behavioral disturbances. Chronic. Progressive. Fall precautions. Given the patient's paradoxical response to lorazepam introduced to the patient's use of quetiapine, antipsychotic, in the future if needed for anxiety/agitation. Advised the patient's that quetiapine holds a black box warning with questions answered and addressed. Offered additional support by recommendation to look at the Alzheimer's Association.org website for 1 Resources and support and is open to this recommendation. 1 no disease modifying agents. Given the patient's advanced age and chronic comorbidities a gradual decline is expected. 5. Caregiver burden. The patient's /DPOA, is providing the primary caregiving. At the present time the patient's finds that she is able to be strong and move forward. However, she is frustrated that she is not able to get the patient to shower safely for many months. She is looking for additional assistance within the home. Introduced having a referral placed [facility] to contact the patient's caregiving [place] needs [place] to this. Referral has been placed. Suggestion regarding obtainment of a baby monitor for with the home for when the spouse is unable to be in the same room and the patient requires monitoring.Concern moving forward is in regards to having a plan in place to avoid a crisis situation. We will continue to tease out advance care planning with the patient's spouse. 6. Advanced care planning. Patient's reports POLST in the home as DN AR. POLST was not accessible during this visit and requested that patient's have available at next visit and if needed may complete a new POLST at follow- up. We will continue to tease out goals of care moving forward. Supportive listening provided. FACE to FACE: It would be a taxing and considerable effort for the patient to leave his home due to underlying osteoarthritis and is also homebound secondary to high risk of mortality if contracts COVID-19 and therefore remaining at home is medically necessary. Patient has a history of falls and due to his underlying osteoarthritis would benefit from physical therapy for strengthening program, training of caregiver/ and equipment recommendations. Occupational therapy for energy conservation and surveillance of the home with fall precaution recommendations. Time Spent: Total time spent 95 minutes with greater than 50% of this spent in counseling and coordination of care With patient and patient's /DPOA, palliative care philosophy, introduction of POLST, examination of the patient, supportive listening,, review of symptom management and anticipatory guidance. Disclaimer: The chart note was formulated using voice recognition technology and unfortunately sound alike errors may occur.
== END 2020-10-12 12:41 | disposition home or self-care (01) ==
LOC: PC 12:40
PROVIDERS: ATTEND Nurse Practitioner Family
DX: Z51.5 Encounter for palliative care (principal); M15.0 Primary generalized (osteo)arthritis; E78.5 Hyperlipidemia, unspecified; F32.9 Major depressive disorder, single episode, unspecified; F03.91 Unspecified dementia, unspecified severity, with behavioral disturbance; Z91.81 History of falling; Z87.891 Personal history of nicotine dependence; Z66 Do not resuscitate
CPT/HCPCS: 99345

== ENCOUNTER 2020-11-03 10:15 | Outpatient (CLI) | payer MEDICARE ==
--- NOTE | 2020-11-03 16:36 | CONSULTATION NOTE ---
Palliative Care Follow Up - Referral Referring Provider: CHARLOTTE Luong Time of Visit: 8318-3386 Referral setting: Home Referral Reason: Dementia/Advanced Care Planning - Information Sources Records reviewed: Previous records reviewed History/Review of Systems obtained from: Patient, Family (/RADU, Arline) Exam limitations: Clinical condition (Advanced Dementia, [place]) - History of Present Illness Update Brief HPI Update: This is a an 89-year-old gentleman who was seen in follow-up today due to [facility] dementia and advanced care planning with his , Priscilla presents within their home. The patient began his cognitive decline several years ago. He continues to be mobile and does have a history of falls none recent. His last fall was in early September when he was assisting carrying a bag of dog food. CT of the spine was obtained and demonstrated an old L1 compression fracture. The patient denies any back or generalized pain. Due to history of falls Home health PT and OT were ordered for evaluation and treatment. However, the reports that physical therapy was not quite the right fit and has declined moving forward with this service at this time. In regards to the patient's recent CT of the spine and noted L1 compression fracture that appeared to be old primary care who ordered a DEXA scan that the has elected not to schedule and proceed with after weighing benefits versus burdens. The patient's appetite remains good. There are times where he will refuse and offering and the patient patient's will let it ride and then return with a repeat offering that is typically excepted. The patient does have a history of verbal output first if his boundaries are not known or respected. Throughout that the risk of outburst or changes in behavioral disturbances. The patient will wake up intermittently in the middle of the night and then puts around in the common area straightening things and mumbling to himself. There has been no evidence of distress per the 's report. The patient is seen sitting at the kitchen table, frail and well groomed. He has a knitted hat on his head for warmth. No evidence of acute distress. denies any changes to medications. Past Medical History: Patient has a past medical history Of hyperlipidemia, osteoarthritis, emphysema, dementia, alcoholism, chronic hearing loss. Social History - Living Situation Living arrangement: At home Living Situation: With spouse/s.o., With family (daughter, Paulette and son) Support System: Patient is and has 4 children. His daughter, Nikki is a former BOARDING ROOM FIXER who lives with her parents to provide assistance as does one of their sons. The patient works for the [employer]. He has a history of tobacco and alcohol abuse. They have 2 pets in the home a cat, and a dog smoker. [facility] intake referral form was previously sent and the patient's was contacted. The patient's reports today that she feels stable with her present help but feels reassured to have [facility] available if this were to change in the future. Medications/Allergies - Medications Home Medications: Ambulatory Orders Medication Instructions Recorded Confirmed Citalopram [CeleXA] 10 mg PO DAILY 11/14/16 10/12/20 Loratadine [Claritin] 10 mg PO DAILY 11/14/16 10/12/20 Multivitamin [Theragran] 1 tab PO DAILY 11/14/16 10/12/20 Simvastatin 40 mg PO QPM 11/14/16 10/12/20 Bacillus Coagulans [Probiotic] 1 each PO DAILY 30 Days capsule. 11/16/16 10/12/20 Cholecalciferol (Vitamin D3) 1 cap PO DAILY 10/12/20 10/12/20 [Vitamin D3] Fluticasone/Salmeterol [Advair 1 puffs IN BID 10/12/20 10/12/20 500-50 Diskus] LORazepam [Ativan] 1 tab PO DAILY PRN 10/12/20 10/12/20 - Allergies Allergies/Adverse Reactions: Allergies Allergy/AdvReac Type Severity Reaction Status Date / Time bacitracin Allergy Unknown Verified 10/12/20 16:25 [From Neosporin ([id number])] bacitracin zinc * Allergy Unknown Verified 10/12/20 16:25 [From Neosporin ([id number])] neomycin sulfate * Allergy Unknown Verified 10/12/20 16:25 [From Neosporin ([id number])] polymyxin B Allergy Unknown Verified 10/12/20 16:25 [From Neosporin ([id number])] Review of Systems - Constitutional Constitutional: reports: Fatigue (naps frequently during the day). denies: Weight stable - Ears, Nose & Throat Ears, Nose & Throat: reports: Hearing loss. denies: Hearing aids (will not wear hearing aids), Dry mouth - Cardiovascular Cardiovascular: denies: Edema - Respiratory Respiratory: denies: Cough - Gastrointestinal Gastrointestinal: reports: Good appetite. denies: Constipation, Diarrhea - Genitourinary Genitourinary: reports: Incontinence. denies: Dysuria - Musculoskeletal Musculoskeletal: reports: Stiffness, Joint pain (history of pain due to OA with hands and knees that is denied today), Other (history of falls) - Integumentary Integumentary: reports: Dryness - Neurological Neurological: reports: General weakness, Memory problems - Psychiatric Psychiatric: reports: Aggitation (history of agitation and with use of PRN lorazepam this caused the patient to "be wired" per the with no recent use) - Endocrine Endocrine: denies: Hypothyroidism - All Other Systems All Other Systems: reports: Reviewed and negative (Patient is a poor historian due to dementia and review of systems is supplemented by the patient's , Priscilla.) Physical Exam - Vital Signs Temperature: 37.1 C Pulse Rate: 77 O2 Saturation: 96 (on RA at rest) Blood Pressure: 118/60 (YUN sitting) - Physical Exam General Appearance: positive: No acute distress, Alert, Other (thin, well groomed) Eyes Bilateral: positive: Normal inspection ENT: positive: No signs of dehydration, Other (+[place]) Neck: positive: Trachea midline Cardiovascular: positive: Regular rate & rhythm, No murmur Respiratory: positive: No respiratory distress, Breath sounds nml. negative: Wheezes Abdomen: positive: Non-tender, Soft, Nml bowel sounds Skin: positive: Dryness (BLE) Extremities: positive: No pedal edema Neurologic/Psychiatric: positive: Disoriented to place, Disoriented to time, Other (Pleseantly confused and minimally verbal) Palliative Care - POLST Patient has POLST: Yes POLST Status: DNR, Comfort Measures Pain: No pain (has history of OA pain) Tiredness/Fatigue: Mild (1-3) (naps frequently during the day) Nausea: None Anorexia: None Dyspnea: None Depression: None Anxiety: Mild (1-3) Feelings of wellbeing/Perceived Quality of Life: Acceptable Sleep: Sleeps well (will get up intermittently at night and straighten things in common areas and talk to himself) Constipation: No Performance Status: FAST 6D - Palliative Care Discussion: POLST introduced at this visit with review with the patient's /DPOA and this has been updated to reflect goals moving forward. POLST updated as DN AR, comfort measures, antibiotic therapy with comfort as goal, and no artificial nutrition by tube. The ultimate desire of the patient's and family has to have a comfortable and respectable at home with transition to hospice services when appropriate. The patient's found home health physical therapy not an appropriate fit at this time. She has gotten a new showerhead in the bathroom and is working with her family in regards to additional bars in the bathroom for support. In the interim, the patient if he allows, will have bathing outside of the shower. Arline Has reported that she has been stubborn as she has always done for others. She is now open to additional assistance for cleaning within the home so she can focus on other tasks and self-care. Impression and Recommendations - Palliative Care Impression: This is a rip 89-year-old gentleman who has had a slow, cognitive decline over several years due to advancing dementia at FAS T 60 who is at high risk for fall and subsequent sequelae. He has had a history of agitation and verbal outbursts, but none recently and his behaviors appear to be well controlled. At the present time the patient appears to be stable. Palliative care to continue provide support for symptom management, care coordination and advance care planning. Recommendations/Counseling Done: 1. L1 compression fracture, noted on CT imaging during the emergency department visit 09/27/2020. Patient has not reported any back pain. The fracture was noted to likely be old in nature. He is ordered for a DEXA scan from primary care. The patient's /DPOA has weigh benefits versus burdens and as she would not elect to pursue treatment if the DEXA scan demonstrated osteoporosis she declines to proceed further with evaluation. Would recommend continuation of vitamin D supplementation for bone health. Fall precautions. 2. History of agitation. Patient has a history of verbal outburst due to his underlying depression. He developed a paradoxical response to lorazepam when previously administered. His anxiety and agitation is presently controlled with citalopram 10 mg daily. If needed in the future for agitation would recommend a low-dose quetiapine. At the present time, the patient's declines prescription for quetiapine. 3. Dementia with behavioral disturbances. Chronic. Progressive. Fall precautions. Continues with a slow, gradual decline. On no disease modifying agents. The patient's recognizes the slow, progressive nature of dementia. Given the patient's advanced age and chronic comorbidities a gradual decline is expected. 4. Caregiver burden. The patient's /DPOA is providing the primary caregiver and. The patient's spouse is now open to additional assistance with tool and cutter grinder to provide herself further help. [facility] has been in contact with the patient's spouse and reviewed services however, at the present time the patient's spouse relays that she feels good with where she and the patient are but finds it comforting that she will be able to reach out to [facility] in the future if there needs change. 5. Advanced care planning. POLST reviewed and updated as DN AR with comfort measures. The goal is to have a comfortable and dignified within the home and transition to hospice services when medically appropriate. Supportive listening provided. Time Spent: Total time spent 50 minutes with greater than 50% of this spent in counseling and coordination of care with patient and /DPOA; examination of patient; updating POLST and review of goals of care; review of progression of dementia; symptom management and anticipatory guidance. Disclaimer: The chart note was formulated using voice recognition technology and unfortunately sound alike errors may occur.
--- OUTSIDE RECORDS SUMMARY | 2020-11-10 00:51 | EXTERNAL MEDICAL SUMMARY RPT | Continuity of Care Document ---
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 2020-09-27 17:39 LAC W/O FB OF R LITTLE FINGER [facility] W/O DAMAGE TO NAIL, 2020-09-27 17:39 LAC W/O FB OF R LITTLE FINGER [facility] W/O DAMAGE TO NAIL, INIT 2020-09-27 17:39 FALL (ON) (FROM) UNSPECIFIED [facility] STAIRS AND STEPS, INI 2020-09-27 17:39 ACTIVITY, OTHER SPECIFIED [facility] 2020-09-27 17:39 UNSPECIFIED DEMENTIA WITHOUT [facility] BEHAVIORAL DISTURBANCE 2020-09-27 17:39 UNSPECIFIED ABDOMINAL PAIN [facility] 2020-09-27 17:39 FALL (ON) (FROM) UNSPECIFIED [facility] STAIRS AND STEPS, INIT ENCNTR 2020-09-29 00:00:00 Disorder of bone and cartilage, [facility] unspecified [facility] 2020-09-29 00:00:00 Abrasion or friction burn of [facility] hand(s) except finger(s) alone, [facility] without mention of infection 2020-09-29 00:00:00 DEXA BONE DENSITY COMPLETE [facility] 2020-09-29 00:00:00 Disorder of bone, unspecified [facility] 2020-09-29 00:00:00 Abrasion of right hand, initial [facility] Care encounter [facility] 2020-09-29 00:00:00 Health-related behavior [facility] 2020-09-29 00:00:00 Tobacco use and exposure [facility] 2020-09-29 00:00:00 Exercise [facility] 2020-09-29 00:00:00 Abrasion of hand [facility] 2020-09-29 00:00:00 Details of drug misuse behavior [facility] Care [facility] 2020-09-29 00:00:00 Little interest or pleasure in [facility] doing things? [facility] 2020-09-29 00:00:00 Feeling down, depressed, or [facility] hopeless? [facility] 2020-09-29 00:00:00 Patient Health Questionnaire 2 [facility] item (PHQ2) total score [facility] 2020-09-29 00:00:00 Alcohol use [facility] 2020-09-29 00:00:00 Tobacco smoking status NHIS [facility] 2020-09-29 00:00:00 Total score? [facility] 2020-09-29 00:00:00 Disorder of bone [facility] 2020-09-29 00:00:00 Former smoker [facility] Allergies date description facility NO KNOWN ENVIRONMENTAL ALLERGIES [facility] NO KNOWN ALLERGIES [facility] CODEINE [facility] AMOXICILLIN [facility] BEVACIZUMAB [facility] FLUTICASONE PROPION-SALMETEROL [facility] neomycin sulfate * [facility] bacitracin zinc * [facility] bacitracin [facility] polymyxin B [facility] NO KNOWN ENVIRONMENTAL ALLERGIES [facility] NO KNOWN ALLERGIES [facility] Results Social History date description facility 2020-09-29 00:00:00 Former smoker [facility] Social History date description facility 2020-09-29 00:00:00 Former smoker [facility] date description facility [id number]
== END 2020-11-03 10:16 | disposition home or self-care (01) ==
LOC: PC 10:15
PROVIDERS: ATTEND Nurse Practitioner Family
DX: Z51.5 Encounter for palliative care (principal); F41.9 Anxiety disorder, unspecified; R45.1 Restlessness and agitation; F32.9 Major depressive disorder, single episode, unspecified; F03.91 Unspecified dementia, unspecified severity, with behavioral disturbance; F10.11 Alcohol abuse, in remission; Z87.891 Personal history of nicotine dependence; Z66 Do not resuscitate
CPT/HCPCS: 99349

== ENCOUNTER 2020-12-29 08:00 | Outpatient (CLI) | payer MEDICARE ==
[2020-12-29 12:01] LABS: ALBUMIN 3.7 g/dL (3.2-5.5); ALBUMIN/GLOBULIN RATIO 1.1 (1.0-2.2); BILIRUBIN,TOTAL 0.6 mg/dL (0.2-1.0); CALCIUM 9.6 mg/dL (8.5-10.3); CREATININE 1.3 mg/dL (0.6-1.2); POTASSIUM 4.4 mmol/L (3.5-5.0); TOTAL PROTEIN 7.2 g/dL (6.7-8.2)
== END 2020-12-29 23:59 | disposition home or self-care (01) ==
LOC: LAB.R 08:00
PROVIDERS: ATTEND Nurse Practitioner Family
DX: E78.5 Hyperlipidemia, unspecified (principal); R60.9 Edema, unspecified
CPT/HCPCS: 80053; 84443

== ENCOUNTER 2020-12-29 10:15 | Outpatient (CLI) | payer MEDICARE ==
--- NOTE | 2020-12-29 11:40 | CONSULTATION NOTE ---
Palliative Care Follow Up - Referral Referring Provider: CHARLOTTE Luong Time of Visit: [id number] Referral setting: Home Referral Reason: LE edema/ Redness RLE - Information Sources Records reviewed: Previous records reviewed History/Review of Systems obtained from: Family (/Arline LOVELACE) Exam limitations: Clinical condition (Advanced dementia) - History of Present Illness Update Brief HPI Update: This is an 89-year-old gentleman who is seen in acute evaluation today due to recent onset of edema more specifically to the bilateral lower extremities and erythema to the right lower leg with his /Priscilla LOVELACE present. The patient developed noted swelling to his hands and feet approximately 2-1/2 to 3 weeks ago per the 's report. When she noticed the swelling she began cutting back on the patient's sodium intake. For example, he is receiving a piece of toast with no jelly or butter. She is also cut out cocoa and milk. He is receiving tea, water and diluted juice gently. Initially, the patient's noted that she found that she could not put her hand between the patient's belt and waistline. Continues to have routine bowel movements approximately 2/day. His appetite remains stable. Since reduction of his sodium intake she is noted that there has been improvement to his swelling most pacifically to his hands and just a "tiny bit" to his feet. She is no longer putting socks on his feet due to indentations but he continues to wear slippers in the house. Approximately 2 days ago she noticed redness to the lateral aspect of the patient's right lower leg. No reported injury. The redness has spread and is slightly warm to touch. The patient's has attributed this redness due to application of a cream. The patient does not have a history of hypertension and his blood pressure remains his usual at our approximate only 100-1 10 systolically. He is not had any visual disturbances or syncopal episodes. He is not on any blood pressure medication. His denies any changes in his oral medications. The patient has not had any dyspnea on exertion. He is not winded when he is having a conversation. The patient is seen sitting at the kitchen table frail, elderly, well-groomed with 3 shirts on as he is often cold. He is admitted at on his head for warmth. No evidence of acute distress. Past Medical History: Patient has a past medical history of hyperlipidemia, osteoarthritis, emphysema, dementia, alcoholism, chronic hearing loss. Social History - Living Situation Living arrangement: At home Living Situation: With spouse/s.o., With family (daughter, Paulette and son) Support System: Patient is and has 4 children. He is level he care for by his , Priscilla within their home. He has a history of tobacco and alcohol abuse. He has not had an alcoholic drink since approximately 2013 when he transition to home [facility] care before returning back home. There are 2 pets in the home a cat and a dog. Medications/Allergies - Medications Home Medications: Ambulatory Orders Medication Instructions Recorded Confirmed Citalopram [CeleXA] 10 mg PO DAILY 11/14/16 10/12/20 Loratadine [Claritin] 10 mg PO DAILY 11/14/16 10/12/20 Multivitamin [Theragran] 1 tab PO DAILY 11/14/16 10/12/20 Simvastatin 40 mg PO QPM 11/14/16 10/12/20 Bacillus Coagulans [Probiotic] 1 each PO DAILY 30 Days capsule. 11/16/16 10/12/20 Cholecalciferol (Vitamin D3) 1 cap PO DAILY 10/12/20 10/12/20 [Vitamin D3] Fluticasone/Salmeterol [Advair 1 puffs IN BID 10/12/20 10/12/20 500-50 Diskus] LORazepam [Ativan] 1 tab PO DAILY PRN 10/12/20 10/12/20 Doxycycline Hyclate 100 mg PO BID 12/29/20 12/29/20 - Allergies Allergies/Adverse Reactions: Allergies Allergy/AdvReac Type Severity Reaction Status Date / Time bacitracin Allergy Unknown Verified 10/12/20 16:25 [From Neosporin ([id number])] bacitracin zinc * Allergy Unknown Verified 10/12/20 16:25 [From Neosporin ([id number])] neomycin sulfate * Allergy Unknown Verified 10/12/20 16:25 [From Neosporin ([id number])] polymyxin B Allergy Unknown Verified 10/12/20 16:25 [From Neosporin ([id number])] Review of Systems - Constitutional Constitutional: reports: Fatigue (naps frequently during the day). denies: Fever, Poor appetite - Eyes Eyes: denies: Irritation - Ears, Nose & Throat Ears, Nose & Throat: reports: Hearing loss. denies: Hearing aids (will not wear hearing aids) - Cardiovascular Cardiovascular: reports: Edema (hands and feet). denies: Chest pain, Lightheadedness - Respiratory Respiratory: denies: Cough, SOB at rest, SOB with exertion - Gastrointestinal Gastrointestinal: reports: Good appetite. denies: Constipation, Vomiting - Genitourinary Genitourinary: reports: Incontinence. denies: Dysuria - Musculoskeletal Musculoskeletal: reports: Stiffness, Joint pain (history of pain due to OA with hands and knees that is denied today), Other (history of falls, last fall appx 1 week ago with no noted injury) - Integumentary Integumentary: reports: Dryness, Pigment changes (to RLE x 2 days with redness, see HPI) - Neurological Neurological: reports: General weakness, Memory problems - Psychiatric Psychiatric: reports: Aggitation (history of agitation and with use of PRN lorazepam this caused the patient to "be wired" per the with no recent use) - Endocrine Endocrine: denies: Hypothyroidism - All Other Systems All Other Systems: reports: Reviewed and negative (Patient is a poor historian due to dementia and review of systems is supplemented by the patient's , Priscilla.) Physical Exam - Vital Signs Temperature: 36.8 C Pulse Rate: 78 Respiratory Rate: 20 O2 Saturation: 97 (on RA) Blood Pressure: 111/58 (left arm) - Physical Exam General Appearance: positive: No acute distress, Alert, Other (thin, well groomed) Eyes Bilateral: positive: Normal inspection ENT: positive: No signs of dehydration, Other (+STILLAGUAMISH) Neck: positive: Trachea midline. negative: No JVD, Lymphadenopathy (R), Lym phadenopathy (L) Cardiovascular: positive: Regular rate & rhythm, Systolic murmur (1/6 WATSON, soft) Respiratory: positive: No respiratory distress, Breath sounds nml. negative: Rales Abdomen: positive: Non-tender, Soft, Nml bowel sounds Skin: positive: Dryness, Other (Erythema to lateral aspect of RLE appx 8cm x 6cm in size with circular drawn to jordy boundaries for . Nontender to touch with mild warmth. 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 Discussed potential underlying concerns such as hypothyroidism, congestive heart failure, venous insufficiency and discussed conservative measures versus medication management. Prior to starting any medication we will proceed with obtainment of lab work and follow with results in /DPOA in agreement. The patient has some and noted abrasions to his lower extremities that may have resulted in development of his presentation of right lower extremity cellulitis and would benefit from oral antibiotic therapy. Advised to continue moisture to the patient's distal extremities with understanding verbalized. R eviewed signs and symptoms of spreading infection such as fever, spreading redness with questions answered and addressed. Results - Lab Results Lab results reviewed: Yes Lab and Imaging Results: 12/29/2020 TSH 7.56 09/27/2020 Sodium 136, potassium 4.0, BUN 22, creatinine 1.4, GFR 48, alk phos 77, albumin 4.1 Impression and Recommendations - Palliative Care Impression: This is a rip 89-year-old gentleman with new onset edema most pacifically to the lower extremities putatively, cellulitis to the right lower extremity, and advancing dementia at FAS T 60 who is at high risk for fall and subsequential sequelae. We will initiate oral doxycycline for 7 days for treatment of right lower extremity cellulitis and for and precautions reviewed with the patient spouse/DPOA regarding contact to palliative care HOME HELP AIDE or PCP with understanding verbalized. Obtainment of lab work today and will review with the spouse before proceeding with any oral antidiuretic therapy. Palliative care to continue to provide support for symptom management, care coordination and advance care planning. Recommendations/Counseling Done: 1.Bilateral lower extremity edema. New onset in the last month. Symmetric. Concern for underlying hypothyroidism as a contributing factor versus CHF versus venous insufficiency. Obtain CMP and T8 TSH and follow with results. Discussed modifications with patient's /DPOA such as continuing a low-sodium diet, elevation of lower extremities when at rest to reduce swelling and obtainment of diabetic socks for compression to be applied in the morning and removed in the evening as this is easier to doing on and off for both the patient and spouse. If no acute or abnormality noted on lab work then would consider low-dose HCTZ 12.5 mg daily x3 doses and monitor for response. There is no evidence of hypertension on review of patient's blood pressure trends and on evaluation today. We will follow-up based on lab results. 2. Right lower extremity cellulitis. Underlying abrasions to lower extremity and contributing to resulting cellulitis. Initiate doxycycline 100 mg twice daily x7 days with purpose, dose and side effects reviewed with the patient specifically discussion of photosensitivity and may take with food and drink. Questions answered and addressed with patient's regarding administration of doxycycline. Outlined area of erythema on patient's right lower extremity and reviewed contact precautions with the patient's such as fever and spreading erythema with understanding verbalized. 3.Elevated TSH. TSH 7.56 today. No prior reference of TSH on file. His TSH level falls into normal range for an octogenarian of 6-8 mU/L. Would avoid treating this patient unless his TSH is above 8 and he has additional symptomatology given considering his frailty to avoid any adverse effects. Would re-evaluate with TSH and Free T4 in 3-4 months for re-evaluation or if symptoms concerning for hypothyroidism develop. . Total time spent 50 minutes with greater than 50% of this spent in counseling and coordination of care with spouse/DPOA and patient; review of differential diagnoses of LE edema and management; pathophysiology of cellulitis; review of pain and symptom management and anticipatory guidance. Contacted patient's at [phone] and message left to discuss lab results. Awaiting return call and will f/u regarding results and further management. Disclaimer: The chart note was formulated using voice recognition technology and unfortunately sound alike errors may occur.
== END 2020-12-29 10:16 | disposition home or self-care (01) ==
LOC: PC 10:15
PROVIDERS: ATTEND Nurse Practitioner Family
DX: Z51.5 Encounter for palliative care (principal); L03.115 Cellulitis of right lower limb; R94.6 Abnormal results of thyroid function studies; I12.9 Hypertensive chronic kidney disease with stage 1 through stage 4 chronic kidney disease, or unspecified chronic kidney disease; N18.30 Chronic kidney disease, stage 3 unspecified; Z66 Do not resuscitate
CPT/HCPCS: 99349

== ENCOUNTER 2021-01-06 10:15 | Outpatient (CLI) | payer MEDICARE ==
--- NOTE | 2021-01-06 14:12 | CONSULTATION NOTE ---
Palliative Care Follow Up - Referral Referring Provider: CHARLOTTE Luong Time of Visit: [id number] Referral setting: Home Referral Reason: RLE cellulitis/BLE edema/Dementia - Information Sources Records reviewed: Previous records reviewed History/Review of Systems obtained from: Patient, Family (spouse/DPOA, Arline) Exam limitations: Clinical condition (RED DEVIL, Advanced Dementia) - History of Present Illness Update Brief HPI Update: This is an 89-year-old gentleman who is seen in follow-up today due to recent lower extremity edema and wound right lower extremity cellulitis with his /DPOA, Priscilla present. The patient developed noted swelling to his hands and feet approximately 3 weeks ago. The patient's began cutting back sodium in the patient's oral intake. We did a trial of HCTZ 12.5 mg once daily for 3 days with the reporting not a huge improvement. She has obtained diabetic compression socks that were recommended and has been utilizing in the morning and removing in the evening. Sometimes she finds it difficult to remove the socks in the evening and has noticed that his legs appear to be about the same to her but feet appear slightly better." Most recent weight was 157 to 158 pounds per 's report. He is not compliant with resting and elevating his lower legs and resting in the afternoon due to his underlying dementia. The patient developed acute erythema to his right lower extremity that was warm to touch with an abrasion indicative of cellulitis and has completed a 7-day course of doxycycline with complete resolution of the underlying cellulitis. No problems or concerns with taking the doxycycline reported. The patient has not had any recent falls. He has not reported any dizziness or headaches. He had recent lab work obtained on 12/29 and his TSH was 7.56. All lab work was reviewed with the patient's and we will continue to follow for subclinical hypothyroidism. The patient's is also noted that intermittently he takes a deep breath when he is walking. Known reported cough for visible evidence of respiratory concerns. The patient is seen sitting at the kitchen table frail, elderly, well-groomed with 2 shirts on as he is often cold. He has a cap on his head. No evidence of acute distress. Past Medical History: Patient has a past medical history of hyperlipidemia, osteoarthritis, emphysema, dementia, alcoholism, chronic hearing loss. Social History - Living Situation Living arrangement: At home Living Situation: With spouse/s.o., With family (daughter, Paulette and son) Support System: Patient is and has 4 children. He is level he care for by his , Priscilla within their home. He has a history of tobacco and alcohol abuse. He has not had an alcoholic drink since approximately 2013 when he transition to home place [facility] care before returning back home. There are 3 pets in the home two cats and a dog. The patient celebrated his birthday earlier this week and does not really recall the event or recognize when his birthday is. He has fascinated with numbers hand he will count cars or count fence posts when he is walking. Medications/Allergies - Medications Home Medications: Ambulatory Orders Medication Instructions Recorded Confirmed Citalopram [CeleXA] 10 mg PO DAILY 11/14/16 10/12/20 Loratadine [Claritin] 10 mg PO DAILY 11/14/16 10/12/20 Multivitamin [Theragran] 1 tab PO DAILY 11/14/16 10/12/20 Simvastatin 40 mg PO QPM 11/14/16 10/12/20 Bacillus Coagulans [Probiotic] 1 each PO DAILY 30 Days capsule. 11/16/16 10/12/20 Cholecalciferol (Vitamin D3) 1 cap PO DAILY 10/12/20 10/12/20 [Vitamin D3] Fluticasone/Salmeterol [Advair 1 puffs IN BID 10/12/20 10/12/20 500-50 Diskus] LORazepam [Ativan] 1 tab PO DAILY PRN 10/12/20 10/12/20 Hydrochlorothiazide 12.5 mg PO .GEORGEDFRIDAY 01/06/21 01/06/21 - Allergies Allergies/Adverse Reactions: Allergies Allergy/AdvReac Type Severity Reaction Status Date / Time bacitracin Allergy Unknown Verified 10/12/20 16:25 [From Neosporin ([id number])] bacitracin zinc * Allergy Unknown Verified 10/12/20 16:25 [From Neosporin ([id number])] neomycin sulfate * Allergy Unknown Verified 10/12/20 16:25 [From Neosporin ([id number])] polymyxin B Allergy Unknown Verified 10/12/20 16:25 [From Neosporin ([id number])] Review of Systems - Constitutional Constitutional: reports: Weight stable (last weight 157-158lb per ). denies: Fever, Poor appetite - Eyes Eyes: denies: Corrective lenses - Ears, Nose & Throat Ears, Nose & Throat: reports: Hearing loss, Other (Is unable to swish and spit water after his use of his advair inhaler). denies: Hearing aids (will not wear hearing aids), Sore throat - Cardiovascular Cardiovascular: reports: Edema (BLE). denies: Chest pain - Respiratory Respiratory: reports: Other (see HPI). denies: Wheezing - Gastrointestinal Gastrointestinal: reports: Good appetite. denies: Constipation, Vomiting - Genitourinary Genitourinary: reports: Incontinence (will void in other areas outside of the b athroom at times). denies: Dysuria - Musculoskeletal Musculoskeletal: reports: Stiffness, Joint pain (history of pain due to OA with hands and knees), Other (history of falls) - Integumentary Integumentary: reports: Dryness. denies: Rash - Neurological Neurological: reports: General weakness, Memory problems - Psychiatric Psychiatric: reports: Aggitation (history of agitation and with use of PRN lorazepam this caused the patient to "be wired" per the ) - Endocrine Endocrine: reports: Intolerance to cold, Other (Subclinical Hypothyroidism) - All Other Systems All Other Systems: reports: Reviewed and negative (Patient is a poor historian due to dementia and review of systems is supplemented by the patient's , Priscilla.) Physical Exam - Vital Signs Pulse Rate: 75 O2 Saturation: 97 (on RA at rest) Blood Pressure: 128/67 (sitting left arm) - Physical Exam General Appearance: positive: No acute distress, Alert, Mild distress, Other (thin, well groomed) Eyes Bilateral: positive: Normal inspection, PERRL ENT: positive: No signs of dehydration, Other (no evidence of oral candidiasis) Neck: positive: Trachea midline. negative: Lymphadenopathy (R), Lymphadenopathy (L) Cardiovascular: positive: Regular rate & rhythm Respiratory: positive: No respiratory distress, Breath sounds nml, Other (Pulse ox with ambulation 98% on RA). negative: Rales Abdomen: positive: Non-tender, Soft, Nml bowel sounds Skin: positive: Other (No longer with erythema to RLE. Bandaid above right medial mallelous due to abrasion that is without erythema or discharge) Extremities: positive: Pedal edema (+1 BLE edema from mid-espino to feet (improved from last assessment)), Other (+DJD changes to b/l hands) Neurologic/Psychiatric: positive: Disoriented to place, Disoriented to time, Other (Pleasantly confused; unable to state his or where he is) Comments/Other: standing 132/60 Palliative Care - POLST Patient has POLST: Yes POLST Status: DNR, Comfort Measures Pain: No pain Sleep: Variable sleep pattern Constipation: No Performance Status: FAST 6D - Palliative Care Discussion: The patient has had development of acute edema that has used in appearance but not completely resolved since last evaluation the use of modification such as dietary restrictions of sodium and use of diabetic compressive socks daily. Lab work was obtained and appeared to be stable with his renal function and electrolytes. Would benefit from introduction of HCTZ 12.5 mg 3 times per week for management of his lower extremity edema that was causing him discomfort as due to his underlying dementia he is not compliant with elevation of his lower extremities at rest. The patient and developed some abrasions to his lower extremities that resulted in right lower extremity cellulitis that has completely resolved after doxycycline course. He does have 1 small abrasion above his medial malleolus that the is providing care and attention to with no evidence of cellulitis and reviewed signs and symptoms to make palliative care aware for signs of infection. Patient's verbalized understanding. Provided supportive listening to the patient's regarding advancement of the patient's cognitive decline and continued adaptations with in the routine to monitor and manage the patient's behaviors. It did make recommendation for ob tainment of a baby monitor to have available to make note if the patient goes outside has the patient's does not always hear the alarm on the door if it is open. Results - Lab Results Lab results reviewed: Yes Lab and Imaging Results: 12/29/2020 Sodium 139, potassium 4.4, BUN 15, creatinine 1.3, GFR 52, glucose 69, AST 35, ALT 25, alk phos 90, albumin 3.7, TSH 7.56. Impression and Recommendations - Palliative Care Impression: This is a rip 89-year-old gentleman with new onset lower extremity edema edema that has had some improvement with possible some underlying CHF first venous insufficiency contributing that has responded to oral diuretic therapy as well as can pression socks. He recently developed right lower extremity cellulitis that has resolved with use of doxycycline course. He has an advancing dementia at FAS T6D and continues to have a slow, progressive cognitive decline. Recent lab work demonstrated subclinical hypothyroidism and will continue to monitor. Palliative care will continue to provide support for symptom management, care coordination and advance care planning. Recommendations/Counseling Done: 1. Bilateral lower extremity edema. New onset in the last month. Symmetric. Mild improvement. Lab work did not demonstrate acute cause. Continue low- sodium diet. Continue to encourage elevation of lower extremities when at rest in the afternoon to reduce swelling. Continue use of diabetic socks for compression to be applied in the morning and removed in the evening. Initiate HCTZ 12.5 mg on Sunday, Sunday, and Sunday to reduce lower extremity edema. We will continue to assess the need for continuation moving forward. Questionable underlying CHF versus venous insufficiency. 2. Right lower extremity cellulitis. Resolved. Localized abrasion to right lower extremity above medial malleolus and advised to monitor for signs and symptoms of infection with understanding verbalized. 3. Subclinical hypothyroidism. TSH 7.56 performed on 12/29/2020 with no prior TSH on file and this level is normal for an octogenarian. Will continue to monitor and re-evaluate in 3 months as wish to avoid adverse effects of treatment given his frailty. 4.Dementia with behavioral disturbances. Chronic. Progressive. Fall precautions. Continues with a slow, gradual decline. On no disease modifying agents. Made recommendations for utilization of a baby monitor for the back door to visualize the patient in the night if he attempts to leave the home as the does not always hear the alarm on the door. Also made recommendations for a talking watch that would reorient the patient to the date and time with a pressed button that the is considering purchasing. Given the patient's advanced age and chronic comorbidities a gradual [place] is expected. Total time spent 45 minutes with greater than 50% of the spent in counseling and coordination of care with the spouse/DPOA and patient; review of lower extremity edema and management; review of labwork; and evaluation of the patient; review of pain and symptom management and anticipatory guidance. Disclaimer: The chart note was formulated using voice recognition technology and unfortunately sound alike errors may occur.
== END 2021-01-06 10:16 | disposition home or self-care (01) ==
LOC: PC 10:15
PROVIDERS: ATTEND Nurse Practitioner Family
DX: Z51.5 Encounter for palliative care (principal); R60.0 Localized edema; E03.9 Hypothyroidism, unspecified; F03.91 Unspecified dementia, unspecified severity, with behavioral disturbance; F10.11 Alcohol abuse, in remission; Z87.891 Personal history of nicotine dependence; Z66 Do not resuscitate
CPT/HCPCS: 99349

== ENCOUNTER 2021-01-21 10:03 | Outpatient (CLI) | payer MEDICARE ==
--- NOTE | 2021-01-21 11:45 | DEXA Report ---
PROCEDURE: Dexa Spine and/or Hip INDICATIONS: BONE DISORDER TECHNIQUE: Dual energy x-ray absorptiometry (DXA) was performed on a [employer] System. Regions measur ed are the AP Spine, femoral neck, and if needed forearm. COMPARISON: None. FINDINGS: Lumbar Spine: Bone Mineral Density 1.229 g/cm/cm,T score 0.1, normal Left Hip: Bone Mineral Density 0.875 g/cm/cm,T score -1.6, osteopenia Left Femoral Neck: Bone Mineral Density 0.756 g/cm/cm, T score -2.4, osteopenia (T score greater or equal to -1.0: NORMAL) (T score from -1.1 to -2.4: OSTEOPENIA) (T score less than or equal to -2.5 to: OSTEOPOROSIS) Impression: Normal bone mineral density of the lumbosacral by and mild osteopenia is present at the l eft hip overall. Osteopenia is more prominent at the left femoral neck. Patients with diagnosis of osteoporosis or osteopenia should have regular bone mineral density assess ment. For those eligible for Medicare, routine testing is allowed once every 2 years. Testing frequ ency can be increased for patients who have rapidly progressing disease or for those who are receivin g medical therapy to restore bone mass. Reviewed by: Prakash Heredia MD on 01/21/2021 11:44 AM PDT Approved by: Prakash Heredia MD on 01/21/2021 11:44 AM PDT Station ID: [id number]
== END 2021-01-21 10:04 | disposition home or self-care (01) ==
LOC: DI 10:03
PROVIDERS: ATTEND Family Medicine
DX: M85.89 Other specified disorders of bone density and structure, multiple sites (principal)

== ENCOUNTER 2021-02-02 12:15 | Outpatient (CLI) | payer MEDICARE ==
--- NOTE | 2021-02-02 14:55 | CONSULTATION NOTE ---
Palliative Care Follow Up - Referral Referring Provider: CHARLOTTE Luong Time of Visit: 9708-8826 Referral setting: Home Referral Reason: Dementia with behavior/BLE edema - Information Sources Records reviewed: Previous records reviewed History/Review of Systems obtained from: Patient, Family (/DPOA) Exam limitations: Clinical condition ([place], Advanced Dementia) - History of Present Illness Update Brief HPI Update: This is an 89-year-old gentleman who was seen in follow-up today due to dementia with behavioral disturbance status, lower extremity edema within his home with his /DPOA, Priscilla present. In November 2019 the patient began developing swelling to his hands and feet. The patient spouse reduced his sodium intake. A trial of HCTZ 12.5 mg was performed without acute benefit. He has been utilizing diabetic compression socks on a daily basis per being placed on in the morning and removed in the evening. Last reported weight by the was 152 pounds. The patient's waist band has increased from 34 inches to 36 inches in pant size. He is presently taking HCTZ 12.5 mg on Sunday, Sunday, and Sunday with some noted benefit. No recent falls or reports of dizziness. The patient's is reporting that he is having increased behavioral disturbances. His agitation will vary but typically is more agitated in the evenings where he will fidget and shuffle rearranging things in the house. He is getting more difficult to redirect. In the past, the patient's daughter, Nikki has been able to redirect the patient but even that has not always been successful of late. The patient's is finding she is having to administer lorazepam 0.5 mg in a more frequent basis typically about every 3 days. There was 1 day recently that he required a dose twice a day as he was entirely uncooperative and had increased anxiety. She finds that giving the as needed lorazepam does provide some benefit. She does note sundowning behavior more specifically in the afternoon and evening hours. The patient is seen sitting in the kitchen table, frail and elderly, well- groomed. He has a cap on his head as is the norm. No evidence of acute distress. Past Medical History: Patient has a past medical history of hyperlipidemia, osteoarthritis, emphysema, dementia, alcoholism, chronic hearing loss. Social History - Living Situation Living arrangement: At home Living Situation: With spouse/s.o., With family (daughter, Paulette and son) Support System: Patient is and has 4 children. He is level he care for by his , Priscilla within their home. He has a history of tobacco and alcohol abuse. He has not had an alcoholic drink since approximately 2013 when he transition to [facility] before returning back home. There are 3 pets in the home two cats and a dog. Medications/Allergies - Medications Home Medications: Ambulatory Orders Medication Instructions Recorded Confirmed Citalopram [CeleXA] 10 mg PO DAILY 11/14/16 10/12/20 Loratadine [Claritin] 10 mg PO DAILY 11/14/16 10/12/20 Multivitamin [Theragran] 1 tab PO DAILY 11/14/16 10/12/20 Simvastatin 40 mg PO QPM 11/14/16 10/12/20 Bacillus Coagulans [Probiotic] 1 each PO DAILY 30 Days capsule. 11/16/16 10/12/20 Cholecalciferol (Vitamin D3) 1 cap PO DAILY 10/12/20 10/12/20 [Vitamin D3] Fluticasone/Salmeterol [Advair 1 puffs IN BID 10/12/20 10/12/20 500-50 Diskus] LORazepam [Ativan] 1 tab PO DAILY PRN 10/12/20 10/12/20 Hydrochlorothiazide 12.5 mg PO .MONWEDFRIDAY 01/06/21 01/06/21 QUEtiapine [SEROquel] 12.5 mg PO .QAFTERNOON 02/02/21 02/02/21 - Allergies Allergies/Adverse Reactions: Allergies Allergy/AdvReac Type Severity Reaction Status Date / Time bacitracin Allergy Unknown Verified 10/12/20 16:25 [From Neosporin ([id number])] bacitracin zinc * Allergy Unknown Verified 10/12/20 16:25 [From Neosporin ([id number])] neomycin sulfate * Allergy Unknown Verified 10/12/20 16:25 [From Neosporin ([id number]-srs-inmxy)] polymyxin B Allergy Unknown Verified 10/12/20 16:25 [From Neosporin ([id number])] Review of Systems - Constitutional Constitutional: reports: Weight stable (last weight 152lb per 's report). denies: Fever, Poor appetite - Eyes Eyes: denies: Irritation - Ears, Nose & Throat Ears, Nose & Throat: reports: Hearing loss. denies: Hearing aids (will not wear hearing aids), Nasal congestion - Cardiovascular Cardiovascular: reports: Edema (BLE, improved). denies: Chest pain - Respiratory Respiratory: denies: Cough - Gastrointestinal Gastrointestinal: reports: Good appetite. denies: Constipation (bowel movement daily to every other day), Vomiting - Genitourinary Genitourinary: denies: Dysuria, Hematuria - Musculoskeletal Musculoskeletal: reports: Stiffness, Joint pain (history of pain due to OA with hands and knees--denies pain today), Other (history of falls) - Integumentary Integumentary: reports: Dryness - Neurological Neurological: reports: General weakness, Memory problems. denies: Dizziness - Psychiatric Psychiatric: reports: Aggitation (see HPI) - Endocrine Endocrine: reports: Intolerance to cold, Other (Subclinical Hypothyroidism) - All Other Systems All Other Systems: reports: Reviewed and negative (Patient is a poor historian due to dementia and review of systems is supplemented by the patient's , Priscilla.) Physical Exam - Vital Signs Temperature: 36.8 C Pulse Rate: 79 O2 Saturation: 96 (on RA) Blood Pressure: 118/62 (left arm) - Physical Exam General Appearance: positive: No acute distress, Alert, Other (thin, well groomed) Eyes Bilateral: positive: Normal inspection ENT: positive: No signs of dehydration Neck: positive: Trachea midline Cardiovascular: positive: Regular rate & rhythm, Systolic murmur (1/6 WATSON, soft) Respiratory: positive: No respiratory distress, Breath sounds nml Abdomen: positive: Non-tender, Soft, Nml bowel sounds. 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 The patient's does not always appreciate a differ ence in the lower extremity edema however, on assessment today it is significantly improved. He is compliant with utilization of diabetic compression socks to his lower extremities. The patient's notes worsening behavioral disturbances with agitation and the patient becomes more uncooperative as the day progresses with some sundowning behaviors. She is utilizing lorazepam as it will more frequently and the patient would benefit for additional stabilization of his moods. does note that he does occasionally appear to have hallucinations but is never fearful of them. Patient's is in agreement of a trial of an oral antipsychotic such as quetiapine and risk versus benefits reviewed at length and recognizes risk but wishes to have the patient be comfortable and wishes to proceed. Patient's has trepidation regarding administration of Covid19 vaccine and due to her prior experiences with a vaccine reaction and reports from some neighbors. Attempted to reassure fears however, she is unclear if she wishes to proceed with the patient to be vaccinated at this time. Discussed limiting risk factors 1 being that the patient is homebound and his main source of contact is with his family members. Would ensure that his family operates with safe social distancing and obtainment of Covid19 vaccine to limit risk for the patient. However, in reviewing with the patient's spouse today if the patient were to contract Covid19 with her awareness of these risks and his frailty, she would wish to have the patient be made comfortable at home and avoid the hospital s etting. Impression and Recommendations - Palliative Care Impression: This is a rip 89-year-old gentleman with lower extremity edema due to underlying CHF first venous insufficiency that has responded to oral diuretic therapy and compression socks. He is having advancing of behavioral disturbances due to his underlying dementia and would benefit from introduction of a low dose antipsychotic such as quetiapine risk versus benefits reviewed with the patient's spouse/DPOA regarding quetiapine and in agreement to trial. He continues as a F AST 6D in regards to his dementia. Palliative care will continue to provide support with symptom management, care coordination and advance care planning. Recommendations/Counseling Done: 1. Bilateral lower extremity edema. ?CHF vs venous insufficiency with noted improvement on physical exam. Continue low-sodium diet. Continue to encourage elevation of lower extremities when at rest in the afternoon to reduce swelling. Continue use of diabetic socks for compression to be applied in the morning and removed in the evening. Continue HCTZ 12.5 mg on Sunday, Sunday, and Sunday to reduce lower extremity edema with Rx sent to [facility]. We will continue to assess the need for continuation moving forward. 2.Dementia with behavioral disturbances. Chronic. Progressive. Fall precautions. Continues with a slow, gradual decline. On no disease modifying agents. Increased agitation noted by with increase use of lorazepam. Continues on citralopram 10mg daily and will send 90 day Rx to [facility]. Discussed use of quetiapine 12.5mg in the afternoon when the patient begins to have increasing behaviors of dementia and in agreement. Reviewed quetiapine has a black box warning and potential side effects of drowsiness as well as orthostatic hypotension with understanding verbalized and agreement to proceed. Given the patient's advanced age and chronic comorbidities a gradual decline is expected. 3.COVID-19 risk. Discussed obtainment of COVID-19 vaccine for the patient. The patient's /DPOA is unsure at the present time due to concerns of potential vaccine reaction. Reassurance provided. Given the patient only has interactions with his family within the home then he has limited risk outside of his family. Advised that family be vaccinated for COVID-19 for patient's protection and continue safe social distancing. If the patient were to contract COVID-19 the patient's spouse wishes to avoid hospitalization and focus on comfort measures at home. Provided contact number for [facility] for vaccination if the patient's spouse wishes to proceed with vaccination in the future. 4. Subclinical hypothyroidism. TSH 7.56 obtained on 12/29/2020 with no prior TSH for comparison and normal level for octogenarian. Will need to re-evaluate in the future or sooner if symptoms develop. Total time spent 45 minutes with greater than 50% of the spent in counseling and coordination of care with the spouse/DPOA and patient; review of progression of dementia and management; review of quetiapine and management; and evaluation of the patient; review of pain and symptom management and anticipatory guidance. Disclaimer: The chart note was formulated using voice recognition technology and unfortunately sound alike errors may occur.
== END 2021-02-02 12:16 | disposition home or self-care (01) ==
LOC: PC 12:15
PROVIDERS: ATTEND Nurse Practitioner Family
DX: Z51.5 Encounter for palliative care (principal); R60.0 Localized edema; F03.91 Unspecified dementia, unspecified severity, with behavioral disturbance; E02 Subclinical iodine-deficiency hypothyroidism; F10.11 Alcohol abuse, in remission; Z87.891 Personal history of nicotine dependence; Z66 Do not resuscitate
CPT/HCPCS: 99349

== ENCOUNTER 2021-03-15 | Outpatient (CLI) | payer MEDICARE ==
--- NOTE | 2021-03-15 11:38 | CONSULTATION NOTE ---
Palliative Care Follow Up - Referral Referring Provider: CHARLOTTE Luong Time of Visit: 9667-5348 Referral setting: Home Referral Reason: BLE Edema/Dementia with behavior/Anxiety - Information Sources Records reviewed: Previous records reviewed History/Review of Systems obtained from: Patient, Family (/DPOA, Priscilla) Exam limitations: Clinical condition (Advanced Dementia) - History of Present Illness Update Brief HPI Update: This is an 89-year-old gentleman who was seen in follow-up today due to dementia with behavioral disturbances, anxiety, and lower extremity edema within his home with his /DPOA Priscilla present. In November 2019 the patient began developing swelling to his hands and feet.. The patient spouse has reduced his sodium intake. His favorite ice cream and holds a lot of extra sodium and therefore the patient's spouse will limit his serving size. A trial of HCTZ 12.5 mg was performed and the patient is utilizing diabetic compression socks on a daily basis when he allows application by either his or daughter. He is presently taking HCTZ 12.5 mg on Sunday, Sunday and Sunday with no swelling to his hands since initiation. He intermittently has some swelling to his feet in trace amounts. No recent falls. The patient [place] is noting increased anxiety and behavioral disturbances. It is hit or miss depending on the day if he is going to be talkative or not or if he is going to listen to suggestions or instructions. There are times where he will not want to come in from being in the car and take some coaxing to get him in. The patient spouse did trial quetiapine first 12.5 mg and then 25 mg for acute anxiety and agitation however, this was not fully effective and the patient's spouse finds Ativan 0.5 mg more effective than the quetiapine. She utilizes quetiapine 2 to 3 days/week. He is also on citalopram 10 mg daily. The patient's spouse reports that he is sleeping more during the day. He is also having increased incontinence episodes where he decides to void where he wants and has some difficulty with removing his depends and jeans and the patient spouse is contemplating switching to sweatpants. There is no concerns regarding the patient's appetite. He continues to consume anything that is put in front of him. He is no longer picky like he was in his younger years. He does have a history of emphysema and is prescribed Advair however, it is hit or miss if he is able to comply with performing this task. Presently he is taking Claritin 10 mg daily for nasal congestion with positive benefit. Patient is seen sitting in the kitchen table, frail and elderly, well-groomed. He does not have a Covering his scalp as is his norm. He is intermittently dozing on and off application table. No evidence of acute distress. Past Medical History: Patient has a past medical history of hyperlipidemia, osteoarthritis, emphysema, dementia, alcoholism, chronic hearing loss. Social History - Living Situation Living arrangement: At home Living Situation: With spouse/s.o., With family (daughter, Paulette and son) Support System: Patient is to him Priscilla and has 4 children. His primary caregiver is his . He has a history of tobacco and alcohol abuse. He has not had an alcoholic drink since approximately 2013 when he transition to [facility] before returning back home where he has been's since. There are 3 pets in the home, 2 cats and a dog. If the patient does not respond to instructions by his , Priscilla typically he will comply to request that are asked by his daughter Nikki who lives with them. Medications/Allergies - Medications Home Medications: Ambulatory Orders Medication Instructions Recorded Confirmed Citalopram [CeleXA] 15 mg PO DAILY 11/14/16 03/15/21 Loratadine [Claritin] 10 mg PO DAILY 11/14/16 03/15/21 Multivitamin [Theragran] 1 tab PO DAILY 11/14/16 03/15/21 Simvastatin 40 mg PO QPM 11/14/16 03/15/21 Bacillus Coagulans [Probiotic] 1 each PO DAILY 30 Days capsule. 11/16/16 03/15/21 Cholecalciferol (Vitamin D3) 1 cap PO DAILY 10/12/20 03/15/21 [Vitamin D3] Fluticasone/Salmeterol [Advair 1 puffs IN BID 10/12/20 03/15/21 500-50 Diskus] LORazepam [Ativan] 1 tab PO DAILY PRN 10/12/20 03/15/21 Hydrochlorothiazide 12.5 mg PO .MONWEDFRIDAY 01/06/21 03/15/21 - Allergies Allergies/Adverse Reactions: Allergies Allergy/AdvReac Type Severity Reaction Status Date / Time bacitracin Allergy Unknown Verified 10/12/20 16:25 [From Neosporin ([id number])] bacitracin zinc * Allergy Unknown Verified 10/12/20 16:25 [From Neosporin ([id number])] neomycin sulfate * Allergy Unknown Verified 10/12/20 16:25 [From Neosporin (tac-wko-ahwrs)] polymyxin B Allergy Unknown Verified 10/12/20 16:25 [From Neosporin ([id number])] Review of Systems - Constitutional Constitutional: reports: Fatigue (sleeping more during the day), Weight stable. denies: Fever, Poor appetite - Eyes Eyes: denies: Corrective lenses - Ears, Nose & Throat Ears, Nose & Throat: reports: Hearing loss. denies: Hearing aids (will not wear hearing aids), Nasal congestion (controlled with claritin) - Cardiovascular Cardiovascular: reports: Edema (BLE, improved). denies: Chest pain - Respiratory Respiratory: denies: Cough (not noted during meals or during the day) - Gastrointestinal Gastrointestinal: reports: Good appetite. denies: Constipation (controlled), Vomiting - Genitourinary Genitourinary: reports: Other (see HPI). denies: Dysuria, Hematuria - Musculoskeletal Musculoskeletal: reports: Stiffness, Joint pain (history of pain due to OA with hands and knees--denies pain today), Other (history of falls, none recent) - Integumentary Integumentary: reports: Dryness - Neurological Neurological: reports: General weakness, Memory problems. denies: Dizziness - Psychiatric Psychiatric: reports: Aggitation (see HPI) - Endocrine Endocrine: reports: Intolerance to cold, Other (Subclinical Hypothyroidism) - All Other Systems All Other Systems: reports: Reviewed and negative (Patient is a poor historian due to dementia and review of systems is supplemented by the patient's , Priscilla.) Physical Exam - Vital Signs Temperature: 36.6 C Pulse Rate: 77 O2 Saturation: 96 (on RA) Blood Pressure: 128/70 (left arm) - Physical Exam General Appearance: positive: No acute distress, Alert, Other (thin, well groomed) Eyes Bilateral: positive: Normal inspection ENT: positive: No signs of dehydration Neck: positive: Trachea midline Cardiovascular: positive: Regular rate & rhythm, Systolic murmur (1/6 WATSON, soft) Respiratory: positive: No respiratory distress, Breath sounds nml. negative: Rales Abdomen: positive: Non-tender, Soft, Nml bowel sounds. 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) Neurologic/Psychiatric: positive: Disoriented to place, Disoriented to time, Other (Pleasantly confused; minimally verbal and will talk when addressed and often state "I don't know" and will shrug.) Palliative Care - POLST Patient has POLST: Yes POLST Status: DNR, Comfort Measures Pain: No pain Anxiety: Mild (1-3) Feelings of wellbeing/Perceived Quality of Life: Good Sleep: Variable sleep pattern Constipation: No Performance Status: FAST 6D - Palliative Care Discussion: The patient has tolerated introduction of HCTZ 12.5 mg 3 days/week and has not had any recurrence of edema to his bilateral hands. When he is amenable he does allow diabetic compression socks to be applied and to his lower extremities and this has been effective. The patient is demonstrating increased anxiety and agitation in the setting of dementia. Patient's did not find quetiapine as effective as lorazepam and therefore will discontinue quetiapine at this time. The patient may require a different antipsychotic in the future but in the interim, we will increase his citalopram from 10 mg to 50 mg daily for underlying anxiety and agitation. The patient's spouse does have lorazepam 0.5 mg to use sparingly and this was encouraged again today to use sparingly and if increased frequency to notify palliative care [facility]. The patient is also demonstrating urinary symptoms indicative of dementia such as voiding in places other than the bathroom. As it is difficult for him to manage his jeans in agreement with the patient's spouse to trial utilizing sweatpants for ease of donning and doffing. Impression and Recommendations - Palliative Care Impression: This is a rip 89-year-old gentleman with lower extremity edema due to underlying CHF versus venous insufficiency that has responded to oral diuretic therapy and compression socks. He is having intermittent underlying anxiety and increased behavioral disturbances due to dementia and would benefit from a dose increase of his citalopram from 10 mg to 50 mg daily. Did not respond to low- dose antipsychotic quetiapine and therefore will discontinue at the present time. Palliative care will continue to provide support for symptom management, care coordination and advance care planning. Recommendations/Counseling Done: 1. Anxiety in the setting of dementia. Increase citalopram to 50 mg daily. Previously sent citalopram 10 mg tablets to [facility] and advised the to notify palliative care if new prescription is needed to reflect dose changes. Would expect noting improvement of symptoms after 4 to 6 weeks was reviewed with the patient's today. May continue to utilize lorazepam 0.5 mg once daily and emphasized to utilize sparingly. May need to increase the program to 20 mg daily for full effect in the future. Continue to monitor. 2. Bilateral lower extremity edema. Questionable CHF versus venous venous insufficiency with improvement. Continue low-sodium diet. Continue to encourage elevation of lower extremities when at rest in the afternoon. Continue use of diabetic socks for compression to be applied in the morning and removed in the evening. Continue HCTZ 12.5 mg on Sunday, Sunday and Sunday to reduce extremity edema. We will continue to assess the need for diuretic therapy and titration accordingly for comfort. 3. Subclinical hypothyroidism. TSH 7.56 obtained on 12/29/2020 with no prior TSH for comparison and normal level for active variant. Will reevaluate in the future or sooner if symptoms develop. 4. Dementia with behavioral disturbances. Chronic. Progressive. Fall precautions. Continues with a slow, gradual decline. On no disease modifying agents. Increased agitation as noted above with diagnosis anxiety. Will increase citalopram to 50 mg daily. Will discontinue quetiapine as the patient's spouse did not find this effective. Introduced the expectation that may trial a different low-dose antipsychotic in the future to assist with behavioral disturbances if behaviors worsen and citalopram ineffective with advice in agreement and verbalizing understanding. Given the patient's advanced age and chronic comorbidities a gradual dose [place] is expected. Total time spent 45 minutes with greater than 50% of this spent in counseling and coordination of care with patient and spouse/DPOA; normalizing spouse's concerns regarding behaviors r/t dementia; supportive listening to spouse; examination of patient; review of symptom management and anticipatory guidance. Disclaimer: The chart note was formulated using voice recognition technology and unfortunately sound alike errors may occur.
== END 2021-03-15 10:01 | disposition home or self-care (01) ==
CPT/HCPCS: 99349

== ENCOUNTER 2021-05-05 11:30 | Outpatient (CLI) | payer MEDICARE ==
--- NOTE | 2021-05-05 13:31 | CONSULTATION NOTE ---
Palliative Care Follow Up - Referral Referring Provider: CHARLOTTE Luong Time of Visit: 5097-4553 Referral setting: Home Referral Reason: Dementia with behavior/Anxiety/BLE edema - Information Sources Records reviewed: Previous records reviewed History/Review of Systems obtained from: Patient, Family (/DPOA,Priscilla) Exam limitations: Clinical condition (Advanced Dementia) - History of Present Illness Update Brief HPI Update: This is an 89-year-old gentleman who was seen in follow-up today due to dementia with behavioral disturbances, anxiety, and lower extremity edema within his home with his /DPLEXIE Wells present. In February 2021 the patient's citalopram dose was increased to 15 mg daily for mood stabilization as the patient's spouse was noting increased anxiety and behavioral disturbances. She has noticed some improvement with dose adjustment however, the patient continues to have good days and bad days. She does have lorazepam 0.5 mg to utilize in situations of acute anxiety which she typically loses approximately 1-2 times per week. She was requesting a refill of lorazepam. There are times in the evening when the patient is not cooperative when changing out of his clothes or removing his socks and sometimes "he sleeps that way." The patient was recently scratching his lower legs and developed some scabs to the right lower leg that are resolving with no signs or symptoms of infection. The patient's was recently able to trim the patient's fingernails which has helped with the scratching. In November the patient began developing swelling to his hands and feet. He continues on a low-sodium intake diet. He is presently on HCTZ 12.5 mg on Sunday, Sunday, and Sunday with no swelling in his hands since this initiation. He has intermittent swelling in his feet. The patient's reports that his clothes are fitting well and his appetite remains good. He continues with some intermittent nasal congestion due to allergies and continues taking claritin 10mg daily with positive benefit. Patient is seen sitting at the kitchen table, frail and elderly wearing 3 shirts today. He is intermittently dozing on and off at the table. No evidence of acute distress. Past Medical History: Patient has a past medical history of hyperlipidemia, osteoarthritis, emphysema, dementia, alcoholism, chronic hearing loss, anxiety. Social History - Living Situation Living arrangement: At home Living Situation: With spouse/s.o., With family (daughter, Paulette and son) Support System: Patient is to his , Priscilla and they have 4 children together. His primary caregiver is his . He has a history of tobacco and alcohol abuse. He has not had an alcoholic drink 6 approximately [address] to [facility] care before returning back home where he has been since. There are 3 pets in the home, 2 cats and a dog. Medications/Allergies - Medications Home Medications: Ambulatory Orders Medication Instructions Recorded Confirmed Citalopram [CeleXA] 15 mg PO DAILY 11/14/16 03/15/21 Loratadine [Claritin] 10 mg PO DAILY 11/14/16 03/15/21 Multivitamin [Theragran] 1 tab PO DAILY 11/14/16 03/15/21 Simvastatin 40 mg PO QPM 11/14/16 03/15/21 Bacillus Coagulans [Probiotic] 1 each PO DAILY 30 Days capsule. 11/16/16 03/15/21 Cholecalciferol (Vitamin D3) 1 cap PO DAILY 10/12/20 03/15/21 [Vitamin D3] Fluticasone/Salmeterol [Advair 1 puffs IN BID 10/12/20 03/15/21 500-50 Diskus] LORazepam [Ativan] 1 tab PO DAILY PRN 10/12/20 03/15/21 hydroCHLOROthiazide 12.5 mg PO .MONWEDFRIDAY 01/06/21 03/15/21 [Hydrochlorothiazide] - Allergies Allergies/Adverse Reactions: Allergies Allergy/AdvReac Type Severity Reaction Status Date / Time bacitracin Allergy Unknown Verified 10/12/20 16:25 [From Neosporin ([id number])] bacitracin zinc * Allergy Unknown Verified 10/12/20 16:25 [From Neosporin ([id number]-[id number])] neomycin sulfate * Allergy Unknown Verified 10/12/20 16:25 [From Neosporin ([id number])] polymyxin B Allergy Unknown Verified 10/12/20 16:25 [From Neosporin (qba-[id number])] Review of Systems - Constitutional Constitutional: reports: Weight stable. denies: Fever, Poor appetite - Eyes Eyes: denies: Irritation - Ears, Nose & Throat Ears, Nose & Throat: reports: Hearing loss. denies: Hearing aids (will not wear hearing aids), Nasal congestion (controlled with claritin) - Cardiovascular Cardiovascular: reports: Edema (BLE, improved). denies: Chest pain - Respiratory Respiratory: denies: Cough, Wheezing - Gastrointestinal Gastrointestinal: reports: Good appetite. denies: Abdominal pain, Constipation (controlled), Vomiting - Genitourinary Genitourinary: reports: Incontinence. denies: Dysuria - Musculoskeletal Musculoskeletal: reports: Stiffness, Joint pain (history of pain due to OA with hands and knees--denies pain today), Other (history of falls, none recent) - Integumentary Integumentary: reports: Pruritis (LE, resolved) - Neurological Neurological: reports: General weakness, Memory problems - Psychiatric Psychiatric: reports: Anxiety, Aggitation (see HPI) - Endocrine Endocrine: reports: Intolerance to cold, Other (Subclinical Hypothyroidism) - All Other Systems All Other Systems: reports: Reviewed and negative (Patient is a poor historian due to dementia and review of systems is supplemented by the patient's , Priscilla.) Physical Exam - Vital Signs Temperature: 36.5 C Pulse Rate: 62 O2 Saturation: 96 Blood Pressure: 124/71 (left wrist) - Physical Exam General Appearance: positive: No acute distress, Alert, Other (thin, well groomed) Eyes Bilateral: positive: Normal inspection ENT: positive: No signs of dehydration, Other (no evidence of oral thrush) Neck: positive: Trachea midline Cardiovascular: positive: Regular rate & rhythm, Systolic murmur (1/6 WATSON, soft) Respiratory: positive: No respiratory distress, Breath sounds nml Abdomen: positive: Non-tender, Soft, Nml bowel sounds. 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 However, the patient's continues to report that the patient continues to have good days and bad days. There are times when the patient himself will be more cooperative than others. Normalized is the waxing and waning related to dementia for the patient's spouse who has had previous experience with her [id number] who also had dementia and assisted in caring for her. Impression and Recommendations - Palliative Care Impression: This is a rip 89-year-old gentleman with underlying early dementia with behavioral disturbances, lower extremity edema controlled with HCTZ who continues to have a slow, functional and cognitive decline. Palliative care will continue to provide support for symptom management, care coordination and advance care planning. Recommendations/Counseling Done: 1. Anxiety in the setting of dementia. Has tolerated increase of citalopram to 15 mg daily. New Rx for citalopram 50 mg daily sent to [facility] at the request of the patient's spouse. Has had a reduction in his overall use of lorazepam since increase of citalopram dosage. Continue lorazepam 0.5 mg once daily as needed for acute anxiety or agitation. Rx for 30 tablets of lorazepam sent to [facility] pharmacy at the request of the patient's spouse. Advised to continue to use lorazepam sparingly. Continue to monitor. 2.Bilateral lower extremity edema. Questionable CHF versus venous insufficiency with improvement. Continue low-sodium diet. Continue encouragement of elevation of lower extremities when at rest. Continue use of diabetic socks for compression to be applied in the morning and removed in the evening. Continue HCTZ 12.5 mg on Sunday, Sunday and Sunday to reduce extremity edema. No evidence of hypotension with utilization of low-dose HCTZ 3 times a week. We will continue to assess the need for diuretic therapy and titration accordingly for comfort in the future. 3. Dementia with behavioral disturbances. Chronic. Progressive. Fall precautions. Continues with a slow, gradual decline. On no disease modifying agents. Tolerated increase of citalopram to 15 mg daily. Spouse previously did not find quetiapine effective for acute anxiety/agitation. In the future may trial a different low-dose antipsychotic to assist with behavioral disturbances if symptoms worsen and citalopram with dose increases are ineffective to maximum dose of 20 mg daily. Given the patient's advanced age and chronic comorbidities a gradual decline is expected. Total time spent 35 minutes with greater than 50% of the spent in counseling and coordination of care with the patient and spouse/DPOA; Normalizing the spouse's feelings regarding behavioral or disturbances due to dementia; examination of the patient; refill of prescription; review of symptom management and anticipatory guidance. Disclaimer: The chart note was formulated using voice recognition technology and unfortunately sound alike errors may occur.
== END 2021-05-05 11:31 | disposition home or self-care (01) ==
LOC: PC 11:30
PROVIDERS: ATTEND Nurse Practitioner Family
DX: Z51.5 Encounter for palliative care (principal); F41.9 Anxiety disorder, unspecified; R60.0 Localized edema; F03.91 Unspecified dementia, unspecified severity, with behavioral disturbance; F10.11 Alcohol abuse, in remission; Z87.891 Personal history of nicotine dependence; Z66 Do not resuscitate
CPT/HCPCS: 99348

== ENCOUNTER 2021-07-08 11:45 | Outpatient (CLI) | payer MEDICARE ==
--- NOTE | 2021-07-08 15:57 | CONSULTATION NOTE ---
Palliative Care Follow Up - Referral Referring Provider: Dr. John Triana Time of Visit: 6051-5205 Referral setting: Home Referral Reason: Dementia/Insomnia - Information Sources Records reviewed: Previous records reviewed History/Review of Systems obtained from: Patient, Family (/DPLEXIE Wells) Exam limitations: Clinical condition (Advanced Dementia) - History of Present Illness Update Brief HPI Update: This is an 89-year-old gentleman who was seen in follow-up today due to dementia with behavioral disturbances, anxiety, lower extremity edema and insomnia within his home with his /DPLEXIE Wells present. In February 2021 the patient citalopram dose was increased to 50 mg daily for mood stabilization as the patient spouse was noting increased anxiety and behavioral disturbances. Patient has not needed to utilize lorazepam as frequently as before. Patient spouse reports she utilizes a interim mid technique. Not requiring a refill at this time. The patient had a fall in May with 2020 that resulted in a skin tear that has resolved. Tina is reporting that his appetite is doing well and noting some increased abdominal girth but is having routine bowel movements. He is voiding more regularly outside with urination despite redirecting. Spouse also notes that he is moving slower and is typically present reading regarding numbers and counting. Patient has been on melatonin 10 mg nightly for quite a number of years per spouse's report. However, he is increasingly not sleeping well during the night resulting in both the patient and spouse "burning candles at both ends." Patient spouse is hoping to have additional support for the patient to sleep during the night so they can go to sleep. She tries to encourage him to not take naps during the day. Patient is seen sitting at the kitchen table, frail and elderly. No evidence of acute distress. Past Medical History: Patient has a past medical history of hyperlipidemia, osteoarthritis, emphysema, dementia, alcoholism, chronic hearing loss, anxiety. Social History - Living Situation Living arrangement: At home Living Situation: With spouse/s.o., With family (daughter, Paulette and son) Support System: Patient is to his , Priscilla and they have 4 children together. His primary caregiver is his . He has a history of tobacco and alcohol abuse. He has not had an alcoholic drink 6 approximately 2013 when he transition to [facility] before returning back home where he has been since. There are 3 pets in the home, 2 cats and a dog. Medications/Allergies - Medications Home Medications: Ambulatory Orders Medication Instructions Recorded Confirmed Citalopram [CeleXA] 15 mg PO DAILY 11/14/16 03/15/21 Loratadine [Claritin] 10 mg PO DAILY 11/14/16 03/15/21 Multivitamin [Theragran] 1 tab PO DAILY 11/14/16 03/15/21 Simvastatin 40 mg PO QPM 11/14/16 03/15/21 Bacillus Coagulans [Probiotic] 1 each PO DAILY 30 Days capsule. 11/16/16 03/15/21 Cholecalciferol (Vitamin D3) 1 cap PO DAILY 10/12/20 03/15/21 [Vitamin D3] Fluticasone/Salmeterol [Advair 1 puffs IN BID 10/12/20 03/15/21 500-50 Diskus] LORazepam [Ativan] 1 tab PO DAILY PRN 10/12/20 03/15/21 hydroCHLOROthiazide 12.5 mg PO .MONWEDFRIDAY 01/06/21 03/15/21 [Hydrochlorothiazide] Melatonin 10 mg PO QPM 07/08/21 traZODone [Desyrel] 25 mg PO QPM PRN 07/08/21 07/08/21 - Allergies Allergies/Adverse Reactions: Allergies Allergy/AdvReac Type Severity Reaction Status Date / Time bacitracin Allergy Unknown Verified 10/12/20 16:25 [From Neosporin ([id number])] bacitracin zinc * Allergy Unknown Verified 10/12/20 16:25 [From Neosporin ([id number])] neomycin sulfate * Allergy Unknown Verified 10/12/20 16:25 [From Neosporin ([id number]-eth-qmmob)] polymyxin B Allergy Unknown Verified 10/12/20 16:25 [From Neosporin ([id number])] Review of Systems - Constitutional Constitutional: reports: Weight stable. denies: Fever, Poor appetite - Ears, Nose & Throat Ears, Nose & Throat: reports: Hearing loss. denies: Hearing aids (will not wear hearing aids) - Cardiovascular Cardiovascular: denies: Chest pain, Edema - Respiratory Respiratory: denies: Cough, Wheezing - Gastrointestinal Gastrointestinal: reports: Good appetite. denies: Constipation (controlled), Vomiting - Genitourinary Genitourinary: reports: Incontinence. denies: Dysuria - Musculoskeletal Musculoskeletal: reports: Stiffness, Other (history of falls last in May 2021). denies: Joint pain (history of pain due to OA with hands and knees) - Integumentary Integumentary: reports: Dryness - Neurological Neurological: reports: General weakness, Memory problems - Psychiatric Psychiatric: reports: Anxiety, Aggitation (see HPI) - Endocrine Endocrine: reports: Intolerance to cold, Other (Subclinical Hypothyroidism) - All Other Systems All Other Systems: reports: Reviewed and negative (Patient is a poor historian due to dementia and review of systems is supplemented by the patient's , Priscilla.) Physical Exam - Vital Signs Temperature: 36.7 C Pulse Rate: 66 O2 Saturation: 96 (on RA) Blood Pressure: 150/77 (left wrist) - Physical Exam General Appearance: positive: No acute distress, Alert, Other (thin, well groomed) Eyes Bilateral: positive: Normal inspection ENT: positive: No signs of dehydration, Other (b/l temporal wasting) Neck: positive: Trachea midline Cardiovascular: positive: Regular rate & rhythm, Systolic murmur (1/6 WATSON, soft) Respiratory: positive: No respiratory distress, Breath sounds nml. negative: Rales Abdomen: positive: Non-tender, Soft, Nml bowel sounds. 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 Discussed introduction of trazodone 25 mg to take nightly as needed for sleep reviewing purpose, dose and side effects with vebralizing understanding and in agreement for trial. Normalized feelings for patient's spouse has patient continues to demonstrate episodes of sundowning periodically at increased behaviors such as avoiding outside. Impression and Recommendations - Palliative Care Impression: This is a rip 89-year-old gentleman with Dementia with behavioral disturbances, insomnia, lower extremity edema controlled with HCTZ who continues to have a slow, functional and cognitive decline. Palliative care will continue provide support for symptom management, care coordination and advance care planning. Recommendations/Counseling Done: 1. Insomnia. Anxiety contributing. Trial introduction of trazodone 25 mg to take nightly as needed for sleep. May continue melatonin. Advised patient spouse/DPOA would not in [place] use melatonin as this can be stimulating at higher dosages with understanding verbalized. Rx for trazodone sent to [facility] order pharmacy per 's request. 2. Anxiety in the setting of dementia. Stable. Continue citalopram 15 mg daily. Continue lorazepam 0.5 mg once daily as needed for acute anxiety or agitation. Advised to continue to use lorazepam sparingly. Continue to monitor. 3. Dementia with behavioral disturbances. Chronic. Progressive. Fall precautions. Continues with a slow, gradual decline. On no disease modifying agents. Tolerated increased dose of citalopram to 50 mg daily. Spouse did not find quetiapine effective in the past for acute anxiety and agitation. In the future may trial a different low-dose antipsychotic to assist with behavioral disturbances and sundowning if required in May increase citalopram to 20 mg daily if needed. Given the patient advanced age and chronic comorbidities a gradual [place] is expected. Total time spent 35 minutes with greater than 50% of this spent in counseling and coordination of care with patient spouse/DPOA, review of symptom management and anticipatory guidance. Disclaimer: The chart note was formulated using voice recognition technology and unfortunately sound alike errors may occur.
== END 2021-07-08 11:46 | disposition home or self-care (01) ==
LOC: PC 11:45
PROVIDERS: ATTEND Nurse Practitioner Family
DX: Z51.5 Encounter for palliative care (principal); F03.91 Unspecified dementia, unspecified severity, with behavioral disturbance; F05 Delirium due to known physiological condition; F41.9 Anxiety disorder, unspecified; G47.00 Insomnia, unspecified; R60.0 Localized edema; Z79.899 Other long term (current) drug therapy; Z91.81 History of falling; Z87.891 Personal history of nicotine dependence; Z87.898 Personal history of other specified conditions; Z66 Do not resuscitate
CPT/HCPCS: 99348

== ENCOUNTER 2021-09-14 12:30 | Outpatient (CLI) | payer MEDICARE ==
--- NOTE | 2021-09-14 17:06 | CONSULTATION NOTE ---
Palliative Care Follow Up - Referral Referring Provider: Dr. John Triana Time of Visit: [id number] Referral setting: Home Referral Reason: Dementia/Insomnia - Information Sources Records reviewed: Previous records reviewed History/Review of Systems obtained from: Patient, Family (spouse/DPOA Priscilla) Exam limitations: Clinical condition (Advanced Dementia) - History of Present Illness Update Brief HPI Update: This is an 89-year-old gentleman who is seen in follow-up today due to dementia with behavioral disturbances, anxiety and insomnia within his home with his /DPLEXIE Wells present. Provider wore N95 mask. The patient is been having increased resistance to pericare and changing depth his soiled underwear after episodes of urinary incontinence that are intermittent. It is also difficult times for the patient to bathe and this is increasingly frustrating for the patient's . She will attempt various techniques and reorientation that her not always effective. She has utilize lorazepam intermittently that has had a positive response and "reset" the patient's mindset and behavior however, she expresses fear that he would become "addicted." To the medication and this is not something that she wishes to do. He continues on citalopram 15 mg daily for mood stabilization. He has had reduction in overall anxiety since this dose increase. He continues on melatonin 10 mg nightly for sleep assistance and it is hit or miss if this will be effective. She is reluctant to make any further changes with management. His appetite overall is stable but there are some good days and bad days per the spouse's report. Patient is seen sitting at the kitchen table, frail and elderly. Completed all of his breakfast. No evidence of acute distress. Past Medical History: Patient has a past medical history of hyperlipidemia, osteoarthritis, emphysema, dementia, alcoholism, chronic hearing loss, anxiety. Not COVID-19 vaccinated. Social History - Living Situation Living arrangement: At home Living Situation: With spouse/s.o., With family (daughter, Paulette and son) Support System: Patient is to his , Priscilla and they have 4 children together. His primary caregiver is his . He has a history of tobacco and alcohol abuse. He has not had an alcoholic drink 6 approximately 2013 when he transition to [facility] before returning back home where he has been since. There are 3 pets in the home, 2 cats and a dog. Medications/Allergies - Medications Home Medications: Ambulatory Orders Medication Instructions Recorded Confirmed Citalopram [CeleXA] 15 mg PO DAILY 11/14/16 03/15/21 Loratadine [Claritin] 10 mg PO DAILY 11/14/16 03/15/21 Multivitamin [Theragran] 1 tab PO DAILY 11/14/16 03/15/21 Simvastatin 40 mg PO QPM 11/14/16 03/15/21 Bacillus Coagulans [Probiotic] 1 each PO DAILY 30 Days capsule. 11/16/16 03/15/21 Cholecalciferol (Vitamin D3) 1 cap PO DAILY 10/12/20 03/15/21 [Vitamin D3] Fluticasone/Salmeterol [Advair 1 puffs IN BID 10/12/20 03/15/21 500-50 Diskus] LORazepam [Ativan] 1 tab PO DAILY PRN 10/12/20 03/15/21 hydroCHLOROthiazide 12.5 mg PO .MONWEDFRIDAY 01/06/21 03/15/21 [Hydrochlorothiazide] Melatonin 10 mg PO QPM 07/08/21 traZODone [Desyrel] 25 mg PO QPM PRN 07/08/21 07/08/21 - Allergies Allergies/Adverse Reactions: Allergies Allergy/AdvReac Type Severity Reaction Status Date / Time bacitracin Allergy Unknown Verified 10/12/20 16:25 [From Neosporin ([id number])] bacitracin zinc * Allergy Unknown Verified 10/12/20 16:25 [From Neosporin ([id number])] neomycin sulfate * Allergy Unknown Verified 10/12/20 16:25 [From Neosporin ([id number])] polymyxin B Allergy Unknown Verified 10/12/20 16:25 [From Neosporin ([id number])] Review of Systems - Constitutional Constitutional: reports: Weight stable. denies: Fever, Poor appetite - Ears, Nose & Throat Ears, Nose & Throat: reports: Hearing loss. denies: Hearing aids (will not wear hearing aids) - Cardiovascular Cardiovascular: denies: Chest pain, Edema - Respiratory Respiratory: denies: Cough - Gastrointestinal Gastrointestinal: reports: Good appetite. denies: Constipation (controlled), Vomiting - Genitourinary Genitourinary: reports: Incontinence. denies: Dysuria - Musculoskeletal Musculoskeletal: reports: Stiffness. denies: Joint pain (history of pain due to OA with hands and knees), Assistive devices - Integumentary Integumentary: reports: Dryness - Neurological Neurological: reports: General weakness, Memory problems - Psychiatric Psychiatric: reports: Anxiety, Aggitation, Other (Resistance to bath hygiene) - Endocrine Endocrine: reports: Intolerance to cold, Other (Subclinical Hypothyroidism) - All Other Systems All Other Systems: reports: Reviewed and negative (Patient is a poor historian due to dementia and review of systems is supplemented by the patient's , Priscilla.) Physical Exam - Vital Signs Temperature: 36.8 C Pulse Rate: 70 O2 Saturation: 96 (on RA) Blood Pressure: 106/56 (left wrist) - Physical Exam General Appearance: positive: No acute distress, Alert, Other (thin, well groom ed) Eyes Bilateral: positive: Normal inspection ENT: positive: No signs of dehydration, Other (b/l temporal wasting) Neck: positive: Trachea midline Cardiovascular: positive: Regular rate & rhythm, Systolic murmur (1/6 WATSON, soft) Respiratory: positive: No respiratory distress, Breath sounds nml Abdomen: positive: Non-tender, Soft, Nml bowel sounds. 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 Normalized the patient's spouse's feelings regarding this is the patient's underlying dementia is showing progressions in response to this behavior and normalized this is a common behavior in individuals with dementia. Advised that she has a tool with lorazepam to utilize if needed and relayed that her fears of Overuse and is not feasible at the present time with verbalized acceptance regarding this. Impression and Recommendations - Palliative Care Impression: This is a rip 89-year-old gentleman with dementia with behavioral disturbances and insomnia who continues to have a slow, functional and cognitive decline. Presently intermittently resistant to personal hygiene and care. Palliative care will continue provide support for symptom management, care coordination and advance care planning. Recommendations/Counseling Done: 1. Insomnia. Intermittent. Continue use of melatonin. Does have trazodone to utilize 25 mg nightly if needed. Continue to have on a second week sleep cycle to reduce insomnia. 2. Anxiety in the setting of dementia. Stable. Continue citalopram 15 mg daily. If discussed utilizing activities such as folding close, vacuuming, blocks to reduce anxiety and have him focused on a task due to his underlying dementia. Continue to monitor. 3. Dementia with behavioral disturbances. Chronic. Progressive. Fall precautions. Continues with a slow, gradual decline. On no disease modifying agents. Continues on citalopram 15 mg daily. Spouse did not find quetiapine effective in the past. In the future may trial a different low-dose antipsychotic to suspect behavioral disturbances and sundowning if required. Normalized for the patient spouse may utilize lorazepam 0.5 mg once daily as needed for acute anxiety or agitation. New Rx for 30 tablets sent to [facility] pharmacy per spouses request. Advised to administer lorazepam 1 hour prior to nail trimming that causes the patient distress. Discussed that lorazepam is a tool in the tool box and unfortunately there are note adequate measures for individuals with dementia to manage their behavioral disturbances adequately but she is utilizing redirection, addressing at a later date to avoid behaviors and chewing on on pharmacological interventions and if these are not successful then persist then may proceed with utilization of lorazepam. Total time spent 40 minutes with greater than 50% spent in counseling and coordination of care with the patient and spouse/DPOA; examination of patient; review of symptom management and anticipatory guidance. Disclaimer: The chart note was formulated using voice recognition technology and unfortunately sound alike errors may occur.
== END 2021-09-14 12:31 | disposition home or self-care (01) ==
LOC: PC 12:30
PROVIDERS: ATTEND Nurse Practitioner Family
DX: Z51.5 Encounter for palliative care (principal); F03.91 Unspecified dementia, unspecified severity, with behavioral disturbance; G47.00 Insomnia, unspecified; F41.9 Anxiety disorder, unspecified; Z87.891 Personal history of nicotine dependence; Z66 Do not resuscitate
CPT/HCPCS: 99349

== ENCOUNTER 2021-11-22 13:00 | Outpatient (CLI) | payer MEDICARE ==
--- NOTE | 2021-11-22 13:54 | CONSULTATION NOTE ---
Palliative Care Follow Up - Referral Referring Provider: Dr. John Triana Time of Visit: [id number] Referral setting: Home Referral Reason: Dementia with behavior - Information Sources Records reviewed: Previous records reviewed History/Review of Systems obtained from: Patient, Family (spouse/RADU Wells) Exam limitations: Clinical condition (Advanced Dementia) - History of Present Illness Update Brief HPI Update: This is an 89-year-old gentleman who was seen in follow-up today due to dementia with behavioral disturbances and anxiety within his home with his /RADU Wells present. Provider wore N95 mask. Patient was displaying increased agitation and refusal of medications that was steadily increasing with increased need of lorazepam for reorienting that prompted increase of Citralopram from 15mg to 20 mg daily on 11/01/2021. Since dose increase of citalopram the patient's spouse reports that the patient's behaviors have been easier to manage. However, the patient tends to have "a 1 tract mind." She does use lorazepam as a tool and there has been no difficulty in administering the lorazepam. Sometimes she will give lorazepam 0.5 mg up to twice a day and some days she will not give it at all. Spouse is also noting some evidence of hallucinations. The patient will be having a conversation with someone who is not present. He does not appear to be bothered or fearful of these hallucinations. He is often making switches between the dog and the cat. The patient continues to have intermittent episodes of insomnia. He continues on melatonin. The patient awakens early in the morning hours she will redirect him to "the Masters chair" in the living room where he will remain until it is time to start the day. It continues to be hit or miss if the patient will allow dose roping for bedtime. Sometimes he will go to bed fully dressed. Continues to have an appetite that is stable however, now offering 1 food at a time as well as 1 drink at a time and not congruently otherwise the patient become distracted and not complete his drink or meal. He continues to be incontinent of urine. No recent falls. Patient is seen sitting at the kitchen table, frail and elderly just completed all of his lunch. No evidence of acute distress. Past Medical History: Patient has a past medical history of hyperlipidemia, osteoarthritis, emphysema, dementia, alcoholism, chronic hearing loss and anxiety. Not Covid19 vaccinated. Social History - Living Situation Living arrangement: At home Living Situation: With spouse/s.o., With family (daughter, Paulette and son) Support System: Patient is to his , Priscilla and they have 4 children together. His primary caregiver is his . He has a history of tobacco and alcohol abuse. He has not had an alcoholic drink since approximately 2013 where he was in a home place memory care before returning back home. There are 3 pets in the home, 2 cats and a dog, [place]. Rebeca, a neighbor walks the dog parrish. The is contemplating introducing Alex for distraction for the patient as he likes counting. Medications/Allergies - Medications Home Medications: Ambulatory Orders Medication Instructions Recorded Confirmed Citalopram [CeleXA] 20 mg PO DAILY 11/14/16 03/15/21 Loratadine [Claritin] 10 mg PO DAILY 11/14/16 03/15/21 Multivitamin [Theragran] 1 tab PO DAILY 11/14/16 03/15/21 Simvastatin 40 mg PO QPM 11/14/16 03/15/21 Bacillus Coagulans [Probiotic] 1 each PO DAILY 30 Days capsule. 11/16/16 03/15/21 Cholecalciferol (Vitamin D3) 1 cap PO DAILY 10/12/20 03/15/21 [Vitamin D3] Fluticasone/Salmeterol [Advair 1 puffs IN BID 10/12/20 03/15/21 500-50 Diskus] LORazepam [Ativan] 1 - 2 tab PO DAILY PRN 10/12/20 03/15/21 hydroCHLOROthiazide 12.5 mg PO .MONWEDFRIDAY 01/06/21 03/15/21 [Hydrochlorothiazide] Melatonin 10 mg PO QPM 07/08/21 traZODone [Desyrel] 25 mg PO QPM PRN 07/08/21 07/08/21 - Allergies Allergies/Adverse Reactions: Allergies Allergy/AdvReac Type Severity Reaction Status Date / Time bacitracin Allergy Unknown Verified 10/12/20 16:25 [From Neosporin ([id number])] bacitracin zinc * Allergy Unknown Verified 10/12/20 16:25 [From Neosporin ([id number])] neomycin sulfate * Allergy Unknown Verified 10/12/20 16:25 [From Neosporin ([id number])] polymyxin B Allergy Unknown Verified 10/12/20 16:25 [From Neosporin ([id number])] Review of Systems - Constitutional Constitutional: reports: Weight stable. denies: Fever, Poor appetite - Eyes Eyes: denies: Irritation - Ears, Nose & Throat Ears, Nose & Throat: reports: Hearing loss. denies: Hearing aids (will not wear hearing aids), Bleeding gums - Cardiovascular Cardiovascular: denies: Chest pain, Edema (controlled with HCTZ three times per week) - Respiratory Respiratory: denies: Wheezing - Gastrointestinal Gastrointestinal: reports: Good appetite (see HPI). denies: Abdominal distention, Constipation (controlled per spouse report), Vomiting - Genitourinary Genitourinary: reports: Incontinence. denies: Dysuria - Musculoskeletal Musculoskeletal: reports: Stiffness. denies: Joint pain (history of pain due to OA with hands and knees), Assistive devices (does not ambulate with a device and does not hold onto the lucero for support) - Integumentary Integumentary: reports: Dryness - Neurological Neurological: reports: General weakness, Memory problems - Psychiatric Psychiatric: reports: Anxiety, Hallucinations, Aggitation, Other (Resistance to bath hygiene) - Endocrine Endocrine: reports: Intolerance to cold, Other (Subclinical Hypothyroidism) - All Other Systems All Other Systems: reports: Reviewed and negative (Patiet is a poor historian due to dementia and ROS is supplemented by spouse/DPOA.) Physical Exam - Vital Signs Temperature: 36.8 C Pulse Rate: 57 O2 Saturation: 95 (on RA) Blood Pressure: 117/56 - Physical Exam General Appearance: positive: No acute distress, Alert, Other (thin, well groomed with multiple layers of tops in place for warmth including a jacket) Eyes Bilateral: positive: Normal inspection ENT: positive: No signs of dehydration, Other (b/l yazdanism wasting) Neck: positive: Trachea midline Cardiovascular: positive: Regular rate & rhythm, Systolic murmur (1/6 WATSON, soft) Respiratory: positive: No respiratory distress, Breath sounds nml. negative: Wheezes Abdomen: positive: Non-tender, Soft, Nml bowel sounds. 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 Reviewed again with the patient spouse lorazepam is a tool to be utilized to assist with anxiety and agitation and this was positively received with reinforcement. Patient is showing signs of slowing down overall and avoiding leaving the home and remaining on the first floor. Overall, demonstrating signs and symptoms related to progression of his dementia both cognitively as well as functionally and including evidence of hallucinations. Impression and Recommendations - Palliative Care Impression: This is a rip 89-year-old gentleman with dementia with behavioral disturbances and anxiety who continues to have a slow, functional and cognitive decline. Has positively responded to increase of citalopram for comfort related to behavioral disturbances and anxiety associated with dementia. Lorazepam to continue to be utilized as a tool for anxiety. Palliative care will continue to provide support for symptom management, care coordination and advance care planning. Recommendations/Counseling Done: 1. Bilateral lower extremity edema. Euvolemic. Continue HCTZ 12.5 mg on Sunday, Sunday, and Sunday as ordered. No evidence of hypotension. Continue to utilize diabetic compression socks to be applied in the morning and removed in the evening as this is easier for removing and placing for both the patient and spouse. Will follow up with BMP at next evaluation to monitor electrolytes. 2. Subclinical hypothyroidism. Last TSH 7.56. No evidence of hypothyroidism symptoms on evaluation. Will reevaluate TSH at next appointment. 3. Anxiety in the setting of dementia. Improved. Continue citalopram 20 mg daily. Continue to encourage activities that the patient finds pleasurable and encourage introduction of Yahtzee as the patient is task focused on counting and numbers. Continue to monitor. 4.Dementia with behavioral disturbances. Chronic. Progressive. Fall precaut ions. Continues to have a slow, gradual decline. On no disease modifying agents. Continue on citalopram 20 mg daily. Spouse did not find quetiapine effective in the past. In the future may trial a different low-dose antipsychotic if required. Again normalized utilization of lorazepam 0.5 mg 1-2 times daily if needed for acute anxiety or agitation. No need for medication refill at the present time. Also reviewed utilization of lorazepam 1 hour prior to nail trimming to reduce patient distress. Continue to encourage redirection. Given the patient's advanced age and chronic comorbidities a gradual decline is expected. Total time spent 37 minutes with greater than 50% of the spent in counseling coronation of care with the patient and spouse/DPOA; review of medication management for symptoms of anxiety; examination of patient; supportive and empathetic listening; review of symptom management and anticipatory guidance. Disclaimer: The chart note was formulated using voice recognition technology and unfortunately sound alike errors may occur.
== END 2021-11-22 13:01 | disposition home or self-care (01) ==
LOC: PC 13:00
PROVIDERS: ATTEND Nurse Practitioner Family
DX: Z51.5 Encounter for palliative care (principal); F03.91 Unspecified dementia, unspecified severity, with behavioral disturbance; F41.9 Anxiety disorder, unspecified; R60.0 Localized edema; E03.8 Other specified hypothyroidism; Z79.899 Other long term (current) drug therapy; Z87.891 Personal history of nicotine dependence; Z87.898 Personal history of other specified conditions; Z66 Do not resuscitate
CPT/HCPCS: 99348